=== PATIENT | female | born 1980 | race Caucasian/White ===

== ENCOUNTER → 2017-01-24 | Outpatient (CLI) | payer BC ==
--- NOTE | 2017-01-24 16:30 | Diagnostic Imaging Report ---
INDICATION: Punched wall with hand. FINDINGS: Three views show no fractures. There are no dislocations. Articulating surfaces are smooth. Joint spaces are well preserved. IMPRESSION: Normal left hand. Dictated by: Dictated on workstation # [id number]
== END ==
LOC: RAD 15:59
PROVIDERS: ATTEND Physician Assistant Medical
DX: M79.642 Pain in left hand (principal); M19.90 Unspecified osteoarthritis, unspecified site
CPT/HCPCS: 36415; 73130; 85652; 86038; 86039; 86141; 86200; 86430

== ENCOUNTER 2017-12-31 07:03 | Emergency (ER) | payer BC ==
[~2017-12-31] VITALS: Ht 157.5 cm; Wt 65.8 kg
[2017-12-31 07:41] LABS: BASOPHILS % (AUTO) 0 % (0-10); EOSINOPHILS # (AUTO) 0.1 10^3/uL (0.0-0.3); EOSINOPHILS % (AUTO) 1 % (0-10); HEMATOCRIT 37 % (35-52); HEMOGLOBIN 12.7 G/DL (11.5-16.0); LYMPHOCYTES # (AUTO) 1.2 X 10^3 (1.0-4.0); LYMPHOCYTES % (AUTO) 25 % (12-44); MEAN CORPUSCULAR HEMOGLOBIN 30 PG (25-34); MEAN CORPUSCULAR HGB CONC 34 G/DL (32-36); MEAN CORPUSCULAR VOLUME 88 FL (80-99); MEAN PLATELET VOLUME 9.2 FL (7.4-10.4); MONOCYTES # (AUTO) 0.4 X 10^3 (0.0-1.0); MONOCYTES % (AUTO) 9 % (0-12); NEUTROPHILS # (AUTO) 3.1 X 10^3 (1.8-7.8); NEUTROPHILS % (AUTO) 64 % (42-75); PLATELET COUNT 291 10^3/uL (130-400); RED BLOOD COUNT 4.22 10^6/uL (4.35-5.85); WHITE BLOOD COUNT 4.8 10^3/uL (4.3-11.0)
[2017-12-31] MEDS ORDERED: NS IV 1000 ML 1,000 ML IV SCH (07:45)
[2017-12-31] MEDS ORDERED: LINA145C (07:47)
[2017-12-31] MEDS ORDERED: VENL225T (07:47)
[2017-12-31] MEDS ORDERED: HYDR2TAB6 (07:47)
[2017-12-31] MEDS ORDERED: DICY20TA10 (07:47)
[2017-12-31] MEDS ORDERED: NORE1TAB55 (07:47)
[2017-12-31 07:56] LABS: ALANINE AMINOTRANSFERASE 33 U/L (0-55); ALBUMIN 4.2 GM/DL (3.2-4.5); ALKALINE PHOSPHATASE 74 U/L (40-136); BILIRUBIN,TOTAL 0.3 MG/DL (0.1-1.0); BUN/CREATININE RATIO 16; CALCIUM 8.9 MG/DL (8.5-10.1); CARBON DIOXIDE 25 MMOL/L (21-32); CHLORIDE 106 MMOL/L (98-107); GFR ESTIMATED > 60; GLUCOSE 85 MG/DL (70-105); POTASSIUM 4.1 MMOL/L (3.6-5.0); SODIUM 138 MMOL/L (135-145)
[2017-12-31 08:05] LABS: BILIRUBIN,URINE NEGATIVE (NEGATIVE); CLARITY,URINE CLEAR; COLOR,URINE YELLOW; GLUCOSE, URINE (UA) NEGATIVE (NEGATIVE); KETONES,URINE NEGATIVE (NEGATIVE); LEUKOCYTE ESTERASE ,URINE 1+ (NEGATIVE); NITRITE,URINE NEGATIVE (NEGATIVE); PH,URINE 6 (5-9); PROTEIN,URINE NEGATIVE (NEGATIVE); UROBILINOGEN,URINE NORMAL (NORMAL)
--- NOTE | 2017-12-31 08:17 | Diagnostic Imaging Report ---
INDICATION: Left-sided abdominal pain. COMPARISON: None Findings: Single supine radiographic view of the abdomen was obtained. There is a 4 mm extraosseous calcification projecting over the left transverse process of L2 in the expected location of the proximal ureter or UPJ. Additional 4 mm calculus is also seen projecting over the inferior pole of the left kidney. No unexpected radiopaque foreign bodies are seen. Small bowel loops are nondistended. There is no large collection of free intraperitoneal air within the abdomen. Bony structures show no acute abnormalities. IMPRESSION: 1. Probable calculus within the proximal left ureter near the UPJ. 2. Additional left-sided renal calculus. Dictated by: Dictated on workstation # [id number]
[2017-12-31 08:30] LABS: BACTERIA,URINE FEW /HPF; WBC,URINE RARE /HPF
[2017-12-31] MEDS ORDERED: KETOROLAC 30 MG/ML VIAL IVP ONE (08:30)
--- NOTE | 2017-12-31 08:38 | ED Abdominal Pain ---
General Chief Complaint: Abdominal/GI Problems Stated Complaint: ABD PAIN Nursing Triage Note: c/o left low abd pain. Onset 0430 this morning. Sepsis Screen: No Definite Risk Source of Information: Patient Exam Limitations: No Limitations History of Present Illness Date Seen by Provider: Dec 31, 2017 Time Seen by Provider: 08:32 Initial Comments The patient is a 37-year-old white female who presents to the ER with complaints of left lower quadrant abdominal pain. She reports that this awakened her at 04 30 this morning. She has a known history of kidney stones on the left but has not ever had one pass. Timing/Duration: 1-3 Hours Severity/Quality: Moderate Location: Flank, Suprapubic Activities at Onset: None Associated Symptoms: Denies Symptoms Allergies and Home Medications Allergies Coded Allergies: Sulfa (Sulfonamide Antibiotics) (Verified Allergy, Unknown, 12/31/17) clindamycin (Verified Allergy, Unknown, 12/31/17) meperidine (Verified Allergy, Unknown, 12/31/17) metoclopramide (Verified Allergy, Unknown, 12/31/17) Patient Home Medication List Home Medication List Reviewed: Yes Review of Systems Constitutional: see HPI EENTM: No Symptoms Reported Respiratory: No Symptoms Reported Cardiovascular: No Symptoms Reported Gastrointestinal: No Symptoms Reported Genitourinary: See HPI, Flank Pain Musculoskeletal: other (chronic knee pain) Skin: no symptoms reported Psychiatric/Neurological: No Symptoms Reported Endocrine: No Symptoms Reported Hematologic/Lymphatic: No Symptoms Reported Past [id number]-Wtaibc-Odgerf Hx Patient Social History Alcohol Use: Occasionally Uses Recreational Drug Use: No Smoking Status: Never a Smoker Recent Foreign Travel: No Contact w/Someone Who Travel: No Recent Infectious Disease Expo: No Surgeries History of Surgeries: Yes (right ACl-2005,2007,left knee meniscectomy, ERCP) Surgeries: Gallbladder, Orthopedic, Tonsillectomy Respiratory History of Respiratory Disorde: No Cardiovascular History of Cardiac Disorders: No Genitourinary History of Genitourinary Disor: No Gastrointestinal History of Gastrointestinal Di: Yes (gastroparesis) Gastrointestinal Disorders: Irritable Bowel Musculoskeletal History of Musculoskeletal Dis: Yes Endocrine History of Endocrine Disorders: No HEENT History of HEENT Disorders: No Cancer History of Cancer: No Psychosocial History of Psychiatric Problem: No Integumentary History of Skin or Integumenta: No Physical Exam Vital Signs VS - Last 72 Hours, by Label 12/31/17 12/31/17 07:30 08:38 Temp 97.3 97.3 Pulse 92 Resp 16 B/P (MAP) 135/107 (116) Pulse Ox 98 O2 Delivery Room Air Capillary Refill : Less Than 3 Seconds General Appearance: moderate distress HEENT: normal ENT inspection Neck: non-tender, full range of motion, supple, normal inspection Respiratory: chest non-tender, lungs clear, normal breath sounds, no respiratory distress, no accessory muscle use Cardiovascular: normal peripheral pulses, regular rate, rhythm, no edema, no gallop, no JVD, no murmur Gastrointestinal: tenderness (left flank and suprapubic) Back: CVA tenderness (L) 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, no motor/sensory deficits, alert, normal mood/affect, oriented x 3 Skin: normal color, warm/dry Progress/Results/Core Measures Results/Orders Lab Results Laboratory Tests Test 12/31/17 07:20 12/31/17 07:50 Range/Units White Blood Count 4.8 4.3-11.0 10^3/uL Red Blood Count 4.22 L 4.35-5.85 10^6/uL Hemoglobin 12.7 11.5-16.0 G/DL Hematocrit 37 35-52 % Mean Corpuscular Volume 88 80-99 FL Mean Corpuscular Hemoglobin 30 25-34 PG Mean Corpuscular Hemoglobin Concent 34 32-36 G/DL Red Cell Distribution Width 13.0 10.0-14.5 % Platelet Count 291 130-400 10^3/uL Mean Platelet Volume 9.2 7.4-10.4 FL Neutrophils (%) (Auto) 64 42-75 % Lymphocytes (%) (Auto) 25 12-44 % Monocytes (%) (Auto) 9 0-12 % Eosinophils (%) (Auto) 1 0-10 % Basophils (%) (Auto) 0 0-10 % Neutrophils # (Auto) 3.1 1.8-7.8 X 10^3 Lymphocytes # (Auto) 1.2 1.0-4.0 X 10^3 Monocytes # (Auto) 0.4 0.0-1.0 X 10^3 Eosinophils # (Auto) 0.1 0.0-0.3 10^3/uL Basophils # (Auto) 0.0 0.0-0.1 10^3/uL Sodium Level 138 135-145 MMOL/L Potassium Level 4.1 3.6-5.0 MMOL/L Chloride Level 106 98-107 MMOL/L Carbon Dioxide Level 25 21-32 MMOL/L Anion Gap 7 5-14 MMOL/L Blood Urea Nitrogen 13 7-18 MG/DL Creatinine 0.80 0.60-1.30 MG/DL Estimat Glomerular Filtration Rate > 60 BUN/Creatinine Ratio 16 Glucose Level 85 70-105 MG/DL Calcium Level 8.9 8.5-10.1 MG/DL Total Bilirubin 0.3 0.1-1.0 MG/DL Aspartate Amino Transf (AST/SGOT) 25 5-34 U/L Alanine Aminotransferase (ALT/SGPT) 33 0-55 U/L Alkaline Phosphatase 74 40-136 U/L Total Protein 8.0 6.4-8.2 GM/DL Albumin 4.2 3.2-4.5 GM/DL Urine Color YELLOW Urine Clarity CLEAR Urine pH 6 5-9 Urine Specific [place] 1.015 L 1.016-1.022 Urine Protein NEGATIVE NEGATIVE Urine Glucose (UA) NEGATIVE NEGATIVE Urine Ketones NEGATIVE NEGATIVE Urine Nitrite NEGATIVE NEGATIVE Urine Bilirubin NEGATIVE NEGATIVE Urine Urobilinogen NORMAL NORMAL MG/DL Urine Leukocyte Esterase 1+ H NEGATIVE Urine RBC (Auto) 1+ H NEGATIVE Urine RBC 2-5 H /HPF Urine WBC RARE /HPF Urine Squamous Epithelial Cells 5-10 /HPF Urine Crystals NONE /LPF Urine Bacteria FEW H /HPF Urine Casts NONE /LPF Urine Mucus NEGATIVE /LPF Urine Culture Indicated NO My Orders Orders - LOUISE MUSTAFA MD Cbc With Automated Diff (12/31/17 07:33) Comprehensive Metabolic Panel (12/31/17 07:33) Ua Culture If Indicated (12/31/17 07:33) Abdomen/Kub 1view (12/31/17 07:33) Ns Iv 1000 Ml (Sodium Chloride 0.9%) (12/31/17 07:45) Urine Bedside (12/31/17 07:56) Ketorolac Injection (Toradol Injection) (12/31/17 08:30) Ct Abd/Pelvis Wo(Kidney Stone) (12/31/17 08:30) Medications Given in ED Current Medications Medications Dose Ordered Sig/Warren Route Start Time Stop Time Status Last Admin Dose Admin Ketorolac Tromethamine 30 mg ONCE ONCE IVP 12/31/17 08:30 12/31/17 08:32 DC 12/31/17 08:38 30 MG Vital Signs/I&O Vital Sign - Last 12Hours 12/31/17 12/31/17 07:30 08:38 Temp 97.3 97.3 Pulse 92 Resp 16 B/P (MAP) 135/107 (116) Pulse Ox 98 O2 Delivery Room Air Blood Pressure Mean: 116 Point of Care Testing Urine -Bedside: Negative Departure Communication (Admissions) Progress Notes 0930 discussed case by phone with Dr. Ortiz. 0935 Dr[address] Ortiz in ER. CT scan showed stones in both kidneys as well as a 3.6 mm calcification in the left proximal ureter. It is also noted that there were multiple rounded calcifications at the level of the UVJ bilaterally. Mild hydronephrosis was noted in the proximal left ureter. Impression Impression: Primary Impression: left ureterolithiasis Disposition: HOME, SELF-CARE Condition: Stable/Unchanged Departure-Patient Inst. Decision time for Depature: 09:35 Referrals: ERMA CAUSEY (PCP) Primary Care Physician Patient Instructions: No Instuctions Given Add. Discharge Instructions: All discharge instructions reviewed with patient and/or family. Voiced understanding. Lots of liquids. 2.Flomax daily. 3.Omnicef twice daily as directed. 4.Zofran 8 mg every 4 hours as needed for nausea and vomiting. Appointment at Dr. Ortiz's office on 01/05 at 1445. He will need to get a plain film of the abdomen prior to that. Scripts Ondansetron (Zofran Odt) 8 Mg Tab.rapdis 8 MG PO every 4 hours, #20 TAB Prov: LOUISE MUSTAFA MD 12/31/17 Cefdinir (Cefdinir) 300 Mg Capsule 300 MG PO twice a day, #14 CAP Prov: LOUISE MUSTAFA MD 12/31/17 Tamsulosin HCl (Flomax) 0.4 Mg Cap 0.4 MG PO DAILY, #7 CAP Prov: LOUISE MUSTAFA MD 12/31/17 LOUISE MUSTAFA MD Dec 31, 2017 08:38
--- NOTE | 2017-12-31 09:05 | Diagnostic Imaging Report ---
PROCEDURE: CT urinary tract, rule out kidney stone. TECHNIQUE: Multiple contiguous axial images were obtained through the abdomen and pelvis without the use of intravenous contrast. INDICATION: Lower abdominal and back pain COMPARISON: None FINDINGS: The lung bases are clear. The liver appears unremarkable. The gallbladder appears absent. There is no biliary dilatation. The pancreas, spleen and adrenal glands appear unremarkable. There is a 2 mm punctate nonobstructive calculus in the inferior pole of the right kidney. The right ureter appears unremarkable. There is a 5 mm stone in the proximal left ureter just distal to the ureteropelvic junction with mild left hydronephrosis. There is an additional 4 mm calculus in the mid left kidney with couple of additional punctate stone seen in the upper pole. The distal left ureter appears unremarkable. The bladder appears unremarkable. There is a 2.3 cm left adnexal cyst or dominant follicle. The uterus and adnexa are otherwise unremarkable. There is no evidence of appendicitis. There is no free fluid, free air or adenopathy. Abdominal aorta appears normal in caliber. Osseous structures appear unremarkable. IMPRESSION: 1. There is a 5 mm stone in the proximal left ureter just distal to the ureteropelvic junction with very mild left hydronephrosis. 2. Bilateral nephrolithiasis. 3. A 2.3 cm left adnexal cyst or dominant follicle Dictated by: Dictated on workstation # [id number]
[2017-12-31] MEDS ORDERED: CEFD300C3 PO (09:54)
[2017-12-31] MEDS ORDERED: TAMS0.4C98 PO (09:54)
[2017-12-31] MEDS ORDERED: ONDA8TAB9 PO (09:54)
[2017-12-31] MEDS ORDERED: Tramadol (10:03)
[2017-12-31] MEDS ORDERED: TRAM50TA2 PO (10:03)
[2017-12-31 10:32] VITALS: BP 128/90
--- NOTE | 2017-12-31 11:28 | CONSULTATION REPORT ---
DATE OF SERVICE: 12/31/2017 ATTENDING PHYSICIAN: Jarvis Crews MD. SUMMARY: After reviewing the patient's records, x-rays, interviewing her and examining her, this is a 37-year-old white female, who came to the emergency room because of left-sided abdominal pain with some nausea. A CT scan of the abdomen and a KUB showed a 3.6 mm stone in the left proximal ureter with mild hydro and some bilateral small stones. The patient received some Toradol with a good improvement of the pain. She knew she had stones before, but never passed one, never had surgery on them. ALLERGIES: SHE IS ALLERGIC TO SULFA, CLINDAMYCIN, DEMEROL, and METOCLOPRAMIDE. PAST SURGICAL HISTORY: Tonsillectomy, cholecystectomy and ACL right side x2 and left knee meniscectomy. SOCIAL HISTORY: No smoking, no alcohol, and no drugs. She works with the [employer]. She is a community engagement specialist. She denies any other complaints. PHYSICAL EXAMINATION: VITAL SIGNS: Per chart. GENERAL: Well-nourished, well developed, in mild distress at the time of my examination. HEENT: Head is normocephalic. ENT unremarkable. NECK: Supple. No bruit. CHEST: Clear, nontender. HEART: Regular rate and rhythm, no murmur. ABDOMEN: Soft. There is a left CVA tenderness. EXTREMITIES: Lower extremity, no edema or cyanosis. NEUROLOGIC: Grossly intact. Oriented x3. LABORATORY DATA: Lab result is essentially okay except for some microscopic hematuria. ASSESSMENT: 1. Left proximal ureteral stone with mild hydro and pain. 2. Bilateral renal stones. 3. Osteoarthritis with previous orthopedic surgeries. PLAN: I discussed with her the plan completely. We will let her go home, give her some antibiotic; Flomax and Zofran. She will be seen in my office on 01/05/2018 at 2:45 with a KUB prior to that and we will manage accordingly. I told her to drink plenty of liquids, especially caffeinated one, strain and catch the stone and bring it with her on her visit to the office. Job ID: [id number] DocumentID: [id number] Dictated Date: 12/31/2017 10:54:13 License Registration Examiner Date: 12/31/2017 11:27:39 Dictated By: VERNON BRENNAN MD
[2018-01-03] MEDS ORDERED: LINA145C PO (01:50)
[2018-01-03] MEDS ORDERED: VENL225T PO (01:50)
[2018-01-03] MEDS ORDERED: TAMS0.4C2 PO (01:50)
[2018-01-03] MEDS ORDERED: DICY20TA10 PO (01:50)
[2018-01-03] MEDS ORDERED: ONDA8TAB13 PO (01:50)
[2018-01-03] MEDS ORDERED: NAPR220C11 PO (01:50)
[2018-01-03] MEDS ORDERED: donperidone PO (01:50)
[2018-01-03] MEDS ORDERED: TRAM50TA2 PO (01:50)
[2018-01-03] MEDS ORDERED: CEFD300C3 PO (01:50)
== END 2017-12-31 10:32 | disposition home or self-care (01) ==
LOC: EDUNIT# 07:03 → ER 07:04
DX: N20.1 Calculus of ureter (principal); Z87.442 Personal history of urinary calculi; Z87.19 Personal history of other diseases of the digestive system; Z90.89 Acquired absence of other organs; Z98.890 Other specified postprocedural states; Z88.2 Allergy status to sulfonamides; Z88.1 Allergy status to other antibiotic agents; Z88.5 Allergy status to narcotic agent
CPT/HCPCS: 36415; 74018; 74176; 80053; 81000; 84703; 85025; 96361; 96374

== ENCOUNTER 2018-01-07 13:51 | Inpatient (IN) | payer BC ==
[~2018-01-07] VITALS: Ht 157.5 cm; Wt 64.4 kg
[~2018-01-07 13:51] MED LIST: CEFD300C3 PO; DICY20TA10; DICY20TA10 PO; HYDR2TAB6; LINA145C; LINA145C PO; NAPR220C11 PO; NORE1TAB55; ONDA8TAB13 PO; ONDA8TAB9 PO; TAMS0.4C2 PO; TAMS0.4C98 PO; TRAM50TA2 PO; Tramadol; VENL225T PO; donperidone PO
[2018-01-07] MEDS ORDERED: NS IV 1000 ML 1,000 ML IV ONE (14:00)
[2018-01-07] MEDS ORDERED: HYDROmorphone 2 MG/ML VIAL (DILAUDID) IVP STA ×3 (14:20→16:37)
[2018-01-07 14:34] LABS: BASOPHILS % (AUTO) 0 % (0-10); EOSINOPHILS # (AUTO) 0.1 10^3/uL (0.0-0.3); EOSINOPHILS % (AUTO) 1 % (0-10); HEMATOCRIT 37 % (35-52); HEMOGLOBIN 12.5 G/DL (11.5-16.0); LYMPHOCYTES # (AUTO) 1.4 X 10^3 (1.0-4.0); LYMPHOCYTES % (AUTO) 18 % (12-44); MEAN CORPUSCULAR HEMOGLOBIN 29 PG (25-34); MEAN CORPUSCULAR HGB CONC 34 G/DL (32-36); MEAN CORPUSCULAR VOLUME 86 FL (80-99); MEAN PLATELET VOLUME 8.6 FL (7.4-10.4); MONOCYTES # (AUTO) 0.9 X 10^3 (0.0-1.0); MONOCYTES % (AUTO) 12 % (0-12); NEUTROPHILS # (AUTO) 5.5 X 10^3 (1.8-7.8); NEUTROPHILS % (AUTO) 70 % (42-75); PLATELET COUNT 400 10^3/uL (130-400); RED BLOOD COUNT 4.26 10^6/uL (4.35-5.85); RED CELL DISTRIBUTION WIDTH 12.7 % (10.0-14.5); WHITE BLOOD COUNT 7.9 10^3/uL (4.3-11.0)
--- NOTE | 2018-01-07 14:53 | ED Abdominal Pain ---
General Chief Complaint: Abdominal/GI Problems Stated Complaint: ABD PAIN Nursing Triage Note: ARRIVED VIA WC TO ROOM 07. WAS HERE ON FRIDAY ET HAD A OPEN COLON RESECTION. WAS SEEN IN NING OFFICE AND SENT OVER FOR OUTPT RADIOLOGY ET CONTINUED TO HAVE PAIN AND WAS TOLD TO COME TO ER PER SHRAVAN. Sepsis Screen: No Definite Risk Source of Information: Patient Exam Limitations: No Limitations History of Present Illness Date Seen by Provider: Jan 07, 2018 Time Seen by Provider: 14:02 Initial Comments Here with report of increasing right lower quadrant abdominal pain. Had right hemicolectomy on Friday. Did have bowel movement 2 days ago and yesterday. Had been doing better until today. Followed up with Dr. Gonzalez today and he was given get labs and x-rays. This is been redone outpatient but she had severe pain so check into the ER. Denies vomiting or fevers. Was noted to have temp of 99.4 at the surgeon's office today. Reports that she's been taking her tramadol that has been working but not today. Denies nausea. Timing/Duration: 4-6 Hours Severity/Quality: Moderate, Severe Location: RUQ, RLQ Radiation: No Radiation Activities at Onset: None Modifying Factors: Improves With Analgesics; Worsens With Movement; Improves With Resting Associated Symptoms: No Back Pain, No Chest Pain; Fever/Chills; No Nausea/ Vomiting, No Shortness of Air, No Swelling/Mass in Abdomen, No Weakness Allergies and Home Medications Allergies Coded Allergies: Sulfa (Sulfonamide Antibiotics) (Verified Allergy, Unknown, 01/02/18) clindamycin (Verified Allergy, Unknown, 12/31/17) meperidine (Verified Allergy, Unknown, 12/31/17) metoclopramide (Verified Allergy, Unknown, 12/31/17) Home Medications Cefdinir 300 Mg Capsule, 300 MG PO BID, (Reported) Dicyclomine HCl 20 Mg Tablet, 20 MG PO 3-4 daily, (Reported) 3-4 times daily prior to meals Linaclotide 145 Mcg Capsule, 145 MCG PO DAILY, (Reported) Naproxen Sodium 220 Mg Capsule, 220 MG PO DAILY, (Reported) 1-2 tabs daily Ondansetron 8 Mg Tab.rapdis, 8 MG PO Q6H PRN for NAUSEA/VOMITING-1ST LINE, ( Reported) Tamsulosin HCl 0.4 Mg Cap, 0.4 MG PO DAILY Prescribed by: LOUISE MUSTAFA on 12/31/17 0954 Tamsulosin HCl 0.4 Mg Cap.er.24h, 0.4 MG PO DAILY, (Reported) Tramadol HCl 50 Mg Tablet, 50 MG PO QID PRN for PAIN-MILD TO MODERATE Prescribed by: MAREN LOPEZ on 01/05/18 1425 Tramadol HCl 50 Mg Tablet, 50 MG PO TID PRN for pain Prescribed by: MAREN LOPEZ on 01/05/18 1520 [donperidone] , 10 MG PO TIDAC, (Reported) Patient Home Medication List Home Medication List Reviewed: Yes Review of Systems Constitutional: see HPI; No chills; fever EENTM: No Symptoms Reported Respiratory: No Symptoms Reported Cardiovascular: No Symptoms Reported Gastrointestinal: See HPI; Denies Constipated, Denies Diarrhea Genitourinary: No Symptoms Reported; Denies Discharge, Denies Pain Musculoskeletal: No back pain; muscle pain Skin: no symptoms reported Psychiatric/Neurological: No Symptoms Reported All Other Systems Reviewed Negative Unless Noted: Yes Past Gmfwxeg-Jtukep-Zpvszl Hx Past Med/Social Hx: Reviewed Nursing Past Med/Soc Hx Patient Social History Alcohol Use: Occasionally Uses Recreational Drug Use: No Smoking Status: Never a Smoker 2nd Hand Smoke Exposure: No Recent Foreign Travel: No Contact w/Someone Who Travel: No Recent Infectious Disease Expo: No Recent Hopitalizations: No Immunizations Up To Date Tetanus Booster (TDap): Unknown Seasonal Allergies Seasonal Allergies: No Past Medical History Surgeries: Yes (right ACl-2006,2007,left knee meniscectomy, ERCP) Gallbladder, Orthopedic, Tonsillectomy Respiratory: No Asthma Currently Using CPAP: No Currently Using BIPAP: No Cardiac: No Neurological: Yes Seizure Disorder Sexually Transmitted Disease: No HIV/AIDS: No Genitourinary: Yes Kidney Stones Gastrointestinal: Yes (gastroparesis) Gastroesophageal Reflux, Irritable Bowel Musculoskeletal: Yes Endocrine: No HEENT: Yes (vision loss) Cataract Cancer: No Psychosocial: Yes Anxiety Integumentary: No Blood Disorders: No Adverse Reaction/Blood Tranf: No Family Medical History Reviewed Nursing Family Hx Autoimmune disorder 19 MOTHER, Onset:30's - 40 Dementia maternal grandmother, Onset:60 years & older Diabetes mellitus maternal grandmother, Onset:Unknown Drug abuse FH: hypothyroidism 19 MOTHER, Onset:Unknown Hypertension maternal grandmother, Onset:Unknown maternal grandfather, Onset:Unknown Kidney stone 19 FATHER, Onset:Unknown Heart Disease, Other Conditions/Hx Physical Exam Vital Signs Vital Signs - First Documented 01/07/18 14:08 Temp 98.3 Pulse 116 Resp 18 B/P (MAP) 146/109 (121) Pulse Ox 98 Capillary Refill : Less Than 3 Seconds General Appearance: WD/WN, no apparent distress HEENT: PERRL/EOMI, pharynx normal Neck: full range of motion, supple Respiratory: lungs clear, normal breath sounds Cardiovascular: no murmur, tachycardia Gastrointestinal: non tender, soft Extremities: non-tender, normal inspection Back: normal inspection, no CVA tenderness, no vertebral tenderness Neurologic/Psychiatric: alert, oriented x 3 Skin: normal color, warm/dry Focused Exam Lactate Level 01/07/18 14:25: Lactic Acid Level 1.51 Lactic Acid Level Laboratory Tests Test 01/07/18 14:25 Lactic Acid Level 1.51 MMOL/L (0.50-2.00) Progress/Results/Core Measures Lab Results Laboratory Tests Test 01/07/18 12:20 01/07/18 14:25 Range/Units Urine Color YELLOW Urine Clarity SLIGHTLY CLOUDY Urine pH 6 5-9 Urine Specific [place] 1.010 L 1.016-1.022 Urine Protein NEGATIVE NEGATIVE Urine Glucose (UA) NEGATIVE NEGATIVE Urine Ketones NEGATIVE NEGATIVE Urine Nitrite NEGATIVE NEGATIVE Urine Bilirubin NEGATIVE NEGATIVE Urine Urobilinogen NORMAL NORMAL MG/DL Urine Leukocyte Esterase 2+ H NEGATIVE Urine RBC (Auto) 1+ H NEGATIVE Urine RBC 2-5 H /HPF Urine WBC 10-25 H /HPF Urine Squamous Epithelial Cells 10-25 H /HPF Urine Crystals NONE /LPF Urine Bacteria FEW H /HPF Urine Casts NONE /LPF Urine Mucus NEGATIVE /LPF Urine Yeast FEW H /HPF Urine Culture Indicated YES White Blood Count 7.9 4.3-11.0 10^3/uL Red Blood Count 4.26 L 4.35-5.85 10^6/uL Hemoglobin 12.5 11.5-16.0 G/DL Hematocrit 37 35-52 % Mean Corpuscular Volume 86 80-99 FL Mean Corpuscular Hemoglobin 29 25-34 PG Mean Corpuscular Hemoglobin Concent 34 32-36 G/DL Red Cell Distribution Width 12.7 10.0-14.5 % Platelet Count 400 130-400 10^3/uL Mean Platelet Volume 8.6 7.4-10.4 FL Neutrophils (%) (Auto) 70 42-75 % Lymphocytes (%) (Auto) 18 12-44 % Monocytes (%) (Auto) 12 0-12 % Eosinophils (%) (Auto) 1 0-10 % Basophils (%) (Auto) 0 0-10 % Neutrophils # (Auto) 5.5 1.8-7.8 X 10^3 Lymphocytes # (Auto) 1.4 1.0-4.0 X 10^3 Monocytes # (Auto) 0.9 0.0-1.0 X 10^3 Eosinophils # (Auto) 0.1 0.0-0.3 10^3/uL Basophils # (Auto) 0.0 0.0-0.1 10^3/uL Sodium Level 139 135-145 MMOL/L Potassium Level 3.6 3.6-5.0 MMOL/L Chloride Level 104 98-107 MMOL/L Carbon Dioxide Level 20 L 21-32 MMOL/L Anion Gap 15 H 5-14 MMOL/L Blood Urea Nitrogen 10 7-18 MG/DL Creatinine 0.84 0.60-1.30 MG/DL Estimat Glomerular Filtration Rate > 60 BUN/Creatinine Ratio 12 Glucose Level 82 70-105 MG/DL Lactic Acid Level 1.51 0.50-2.00 MMOL/L Calcium Level 10.1 8.5-10.1 MG/DL Total Bilirubin 0.3 0.1-1.0 MG/DL Aspartate Amino Transf (AST/SGOT) 30 5-34 U/L Alanine Aminotransferase (ALT/SGPT) 27 0-55 U/L Alkaline Phosphatase 97 40-136 U/L Total Protein 8.6 H 6.4-8.2 GM/DL Albumin 4.1 3.2-4.5 GM/DL My Orders Orders - SANTOS VELEZ MD Cbc With Automated Diff (01/07/18 14:00) Comprehensive Metabolic Panel (01/07/18 14:00) Lactic Acid Analyzer (01/07/18 14:00) Ua Culture If Indicated (01/07/18 14:00) Blood Culture (01/07/18 14:00) Saline Lock/Iv-Start (01/07/18 14:00) Ns Iv 1000 Ml (Sodium Chloride 0.9%) (01/07/18 14:00) Hydromorphone Injection (Dilaudid Inject (01/07/18 14:20) Hydromorphone Injection (Dilaudid Inject (01/07/18 14:56) Urine Culture (01/07/18 12:20) Ct Abdomen/Pelvis W (01/07/18 15:44) Hydromorphone Injection (Dilaudid Inject (01/07/18 16:37) Ceftriaxone Injection (Rocephin Injectio (01/07/18 16:45) Medications Given in ED Current Medications Medications Dose Ordered Sig/Warren Route Start Time Stop Time Status Last Admin Dose Admin Ceftriaxone Sodium 1000 mg/ Sodium Chloride 100 ml @ 200 mls/hr ONCE ONCE IV 01/07/18 16:45 01/07/18 17:14 DC 01/07/18 17:00 200 MLS/HR Iohexol 100 ml ONCE ONCE IV 01/07/18 16:15 01/07/18 16:18 DC 01/07/18 16:19 100 ML Sodium Chloride 80 ml ONCE ONCE IV 01/07/18 16:15 01/07/18 16:18 DC 01/07/18 16:19 80 ML Sodium Chloride 1,000 ml @ 0 mls/hr Q0M ONCE IV 01/07/18 14:00 01/07/18 14:03 DC 01/07/18 14:31 1,000 MLS/HR Vital Signs/I&O 01/07/18 14:08 Temp 98.3 Pulse 116 Resp 18 B/P (MAP) 146/109 (121) Pulse Ox 98 Blood Pressure Mean: 121 Progress Note : Progress Note Seen and evaluated. IV, labs, UA, normal saline 1 L bolus and Dilaudid 1 mg IV. We will evaluate labs and determine need for other imaging. 1455: Patient still and unrelenting pain. Dilaudid 1 mg IV repeated.. Monitor patient. CT abdomen and pelvis ordered. 1630: Patient has persistent pain. CT scan evaluated and concerning findings for ileus as well as air-fluid levels. This was discussed with Dr. Gonzalez. Patient still with significant pain. Dilaudid 1 mg IV ordered. She has better now although then when she came in earlier. To be admitted. Admit, inpatient status. We will also treat for possible urinary tract infection. Rocephin 1 g IV ordered. We will continue this during hospitalization until cultures results. Findings concerns discussed with patient and family who agree with plan. Diagonstic Imaging: CT Plain Films/CT/US/NM/MRI: abdomen, pelvis Comments %(RAD)RES..mtdd.print.filter("cj")VIA [facility] %(RAD)RES..mtdd.print.filter("cj")[place], [place] NAME: EULALIO NAILS [facility] REC#: [id number] PT STATUS: REG ER : 1980 PHYSICIAN: SANTOS VELEZ MD ADMIT DATE: 01/07/18/ER Draft Date of Exam:01/07/18 CT ABDOMEN/PELVIS W PROCEDURE: CT abdomen and pelvis with contrast. TECHNIQUE: Multiple contiguous axial images were obtained through the abdomen and pelvis after administration of intravenous contrast. INDICATION: Right lower quadrant pain. Colon resection 6 days ago. COMPARISON: 01/02/2018 FINDINGS: Lower chest: There are a few scattered foci of linear atelectasis in lung bases. No pericardial or pleural effusion. Peritoneum: Trace free fluid in the right paracolic gutter is likely postoperative in nature. No loculated fluid collections to indicate drainable abscess. Liver and biliary system: Liver is normal. Gallbladder is not visualized and may be surgically absent or decompressed. Spleen and Pancreas: Spleen is normal. Pancreas enhances normally without mass lesion. Adrenals: Normal. tract: Stable 5 mm nonobstructing stone in the mid left kidney. Kidneys enhance normally without obstruction. Uterus is normal in appearance. Urinary bladder is well distended without wall thickening. GI tract: Stomach is partially distended with fluid. A few of the distal small bowel loops are fluid filled but nondilated. The entire colon is fluid-filled without wall thickening. Status post partial right-sided colectomy. Appendix is likely surgically absent. Vasculature and Lymph nodes: Normal caliber aorta. No abdominal or pelvic lymphadenopathy. Musculoskeletal: No concerning osseous lesion. IMPRESSION: 1. Recent surgical changes of partial right colectomy. No loculated fluid collection to indicate abscess. No free intraperitoneal air or fluid that would suggest anastomotic leak. 2. Fluid-filled and nondilated loops of small bowel and colon may be due to postoperative ileus. Dictated on workstation # [id number] Dict: 01/07/18 1644 Trans: 01/07/18 1655 [id number] Interpreted by: REMINGTON MCGOVERN MD Electronically signed by: Reviewed: Reviewed by Me Departure Communication (Admissions) Time/Spoke to Admitting Phy: 16:30 Impression Primary Impression: Postoperative pain Additional Impressions: Ileus following gastrointestinal surgery Urinary tract infection Qualified Codes: N30.00 - Acute cystitis without hematuria Disposition: ADMITTED INPATIENT Condition: Stable Admissions Decision to Admit Reason: Admit from ER (General) Decision to Admit/Date: Jan 07, 2018 Time/Decision to Admit Time: 16:30 Departure-Patient Inst. Referrals: ERMA CAUSEY (PCP/Family) Primary Care Physician SANTOS VELEZ MD Jan 07, 2018 14:53
[2018-01-07 14:57] LABS: ALANINE AMINOTRANSFERASE 27 U/L (0-55); ALBUMIN 4.1 GM/DL (3.2-4.5); ALKALINE PHOSPHATASE 97 U/L (40-136); BILIRUBIN,TOTAL 0.3 MG/DL (0.1-1.0); BUN/CREATININE RATIO 12; CALCIUM 10.1 MG/DL (8.5-10.1); CARBON DIOXIDE 20 MMOL/L (21-32); CHLORIDE 104 MMOL/L (98-107); CREATININE SERUM 0.84 MG/DL (0.60-1.30); GFR ESTIMATED > 60; GLUCOSE 82 MG/DL (70-105); POTASSIUM 3.6 MMOL/L (3.6-5.0); SODIUM 139 MMOL/L (135-145); TOTAL PROTEIN 8.6 GM/DL (6.4-8.2)
[2018-01-07 15:31] LABS: BILIRUBIN,URINE NEGATIVE (NEGATIVE); CLARITY,URINE SLIGHTLY CLOUDY; COLOR,URINE YELLOW; GLUCOSE, URINE (UA) NEGATIVE (NEGATIVE); KETONES,URINE NEGATIVE (NEGATIVE); LEUKOCYTE ESTERASE ,URINE 2+ (NEGATIVE); NITRITE,URINE NEGATIVE (NEGATIVE); PH,URINE 6 (5-9); PROTEIN,URINE NEGATIVE (NEGATIVE); UROBILINOGEN,URINE NORMAL (NORMAL)
[2018-01-07 15:41] LABS: BACTERIA,URINE FEW /HPF; YEAST,URINE FEW /HPF
[2018-01-07] MEDS ORDERED: IOHEXOL 350 MG/ML 100 ML (OMNIPAQUE 350) VIAL IV ONE (16:15)
[2018-01-07] MEDS ORDERED: NS 250 ML (IVPB) BAG IV ONE (16:15)
[2018-01-07] MEDS ORDERED: cefTRIAXone INJECTION 1,000 MG in NS (IVPB) 100 ML IV ONE (16:45)
--- NOTE | 2018-01-07 16:56 | Diagnostic Imaging Report ---
PROCEDURE: CT abdomen and pelvis with contrast. TECHNIQUE: Multiple contiguous axial images were obtained through the abdomen and pelvis after administration of intravenous contrast. INDICATION: Right lower quadrant pain. Colon resection 6 days ago. COMPARISON: 01/02/2018 FINDINGS: Lower chest: There are a few scattered foci of linear atelectasis in lung bases. No pericardial or pleural effusion. Peritoneum: Trace free fluid in the right paracolic gutter is likely postoperative in nature. No loculated fluid collections to indicate drainable abscess. Liver and biliary system: Liver is normal. Gallbladder is not visualized and may be surgically absent or decompressed. Spleen and Pancreas: Spleen is normal. Pancreas enhances normally without mass lesion. Adrenals: Normal. tract: Stable 5 mm nonobstructing stone in the mid left kidney. Kidneys enhance normally without obstruction. Uterus is normal in appearance. Urinary bladder is well distended without wall thickening. GI tract: Stomach is partially distended with fluid. A few of the distal small bowel loops are fluid filled but nondilated. The entire colon is fluid-filled without wall thickening. Status post partial right-sided colectomy. Appendix is likely surgically absent. Vasculature and Lymph nodes: Normal caliber aorta. No abdominal or pelvic lymphadenopathy. Musculoskeletal: No concerning osseous lesion. IMPRESSION: 1. Recent surgical changes of partial right colectomy. No loculated fluid collection to indicate abscess. No free intraperitoneal air or fluid that would suggest anastomotic leak. 2. Fluid-filled and nondilated loops of small bowel and colon may be due to postoperative ileus. Dictated by: Dictated on workstation # [id number]
[2018-01-07 17:45] VITALS: BP 130/82
[2018-01-07] MEDS ORDERED: NS IV 1000 ML 1,000 ML ONE (17:52)
[2018-01-07] MEDS ORDERED: ONDANSETRON 4 MG/2 ML (SDV) Z0FRAN IV PRN (18:15)
[2018-01-07] MEDS ORDERED: CATHETER FLUSH 10 ML SYR IV PRN (18:15)
[2018-01-07] MEDS: HYDROmorphone 2 MG/ML VIAL (DILAUDID) IV PRN ×3 (18:18→23:47)
[2018-01-07] MEDS: NS IV 1000 ML 1,000 ML IV SCH (18:19)
[2018-01-07 19:20] VITALS: BP 130/87
[2018-01-08 00:41] VITALS: BP 126/86
[2018-01-08] MEDS: NS IV 1000 ML 1,000 ML IV SCH ×4 (01:44→16:07)
[2018-01-08 03:57] VITALS: BP 123/79
[2018-01-08] MEDS: HYDROmorphone 2 MG/ML VIAL (DILAUDID) IV PRN ×2 (03:57→08:45)
[2018-01-08 06:11] LABS: BASOPHILS % (AUTO) 0 % (0-10); EOSINOPHILS # (AUTO) 0.1 10^3/uL (0.0-0.3); EOSINOPHILS % (AUTO) 2 % (0-10); HEMATOCRIT 29 % (35-52); HEMOGLOBIN 9.7 G/DL (11.5-16.0); LYMPHOCYTES # (AUTO) 1.1 X 10^3 (1.0-4.0); LYMPHOCYTES % (AUTO) 18 % (12-44); MEAN CORPUSCULAR HEMOGLOBIN 29 PG (25-34); MEAN CORPUSCULAR HGB CONC 33 G/DL (32-36); MEAN CORPUSCULAR VOLUME 88 FL (80-99); MEAN PLATELET VOLUME 8.3 FL (7.4-10.4); MONOCYTES # (AUTO) 0.8 X 10^3 (0.0-1.0); MONOCYTES % (AUTO) 13 % (0-12); NEUTROPHILS % (AUTO) 68 % (42-75); PLATELET COUNT 312 10^3/uL (130-400); RED BLOOD COUNT 3.31 10^6/uL (4.35-5.85); RED CELL DISTRIBUTION WIDTH 12.9 % (10.0-14.5); WHITE BLOOD COUNT 5.9 10^3/uL (4.3-11.0)
[2018-01-08 06:31] LABS: ALANINE AMINOTRANSFERASE 25 U/L (0-55); ALBUMIN 3.2 GM/DL (3.2-4.5); ALKALINE PHOSPHATASE 79 U/L (40-136); BILIRUBIN,TOTAL 0.3 MG/DL (0.1-1.0); BUN/CREATININE RATIO 8; CALCIUM 8.6 MG/DL (8.5-10.1); CARBON DIOXIDE 20 MMOL/L (21-32); CHLORIDE 110 MMOL/L (98-107); CREATININE SERUM 0.71 MG/DL (0.60-1.30); GFR ESTIMATED > 60; GLUCOSE 88 MG/DL (70-105); POTASSIUM 3.6 MMOL/L (3.6-5.0); SODIUM 139 MMOL/L (135-145); TOTAL PROTEIN 6.6 GM/DL (6.4-8.2)
[2018-01-08 08:00] VITALS: BP 126/85
[2018-01-08] MEDS: cefTRIAXone 1 GM/NS 100 ML IV SCH ×2 (08:45)
[2018-01-08] MEDS ORDERED: TRAM50TA2 PO (09:50)
[2018-01-08] MEDS ORDERED: NORE1TAB55 PO (09:54)
[2018-01-08] MEDS ORDERED: PEDI18TA2 PO (09:54)
[2018-01-08] MEDS ORDERED: DOMPERIDONE 10MG PO (09:54)
--- NOTE | 2018-01-08 10:20 | Physical Therapy Progress Note ---
Therapy Progress Note Patient is currently ambulating in hallway independently with family. No skilled PT indicated at this time. PT did discuss with patient and family POC and they agree. REGIS ARREOLA PT Jan 08, 2018 10:20
[2018-01-08] MEDS: morphine INJ 4 MG/ML 1 ML (VIAL/SYRINGE) IVP PRN ×4 (11:27→19:00)
[2018-01-08 12:00] VITALS: BP 133/88
--- NOTE | 2018-01-08 12:30 | History & Physical-Surgical ---
History of Present Illness History of Present Illness Reason for visit/HPI chief complaint right lower quadrant abdominal pain. Patient is 37-year-old female who had recent right colectomy for cecal volvulus. She was seen in the office yesterday with right lower quadrant abdominal pain which was worsening and went to emergency department. Patient is having some difficulty with urination as well. Patient had a CT scan performed which was consistent with ileus. urine with urinary tract infection cultures pending. patient states that when she is receiving allotted she's having increased pain. She requests that a different pain medication be provided. She feels that she's getting up and walking a little bit easier today. She did have a small liquid stool yesterday. She denies any nausea vomiting fever sweats chills shortness of breath or chest pain. Date of Admission Jan 07, 2018 at 17:00 Date Seen by Provider: Jan 08, 2018 Time Seen by Provider: 12:25 I consulted on this patient on 01/08/18 12:25 Attending Physician Montserrat Gonzalez DO Admitting Physician Paola Burns Consult Allergies and Home Medications Allergies Coded Allergies: Sulfa (Sulfonamide Antibiotics) (Verified Allergy, Unknown, 01/02/18) clindamycin (Verified Allergy, Unknown, 12/31/17) meperidine (Verified Allergy, Unknown, 12/31/17) metoclopramide (Verified Allergy, Unknown, 12/31/17) Home Medications Dicyclomine HCl 20 Mg Tablet, 20 MG PO TIDAC, (Reported) Linaclotide 145 Mcg Capsule, 145 MCG PO DAILY, (Reported) Naproxen Sodium 220 Mg Capsule, 220-440 MG PO Q8H PRN for PAIN-MILD, (Reported) TAKES 1 TO 2 (220MG) CAPSULES Norethindrone-Ethinyl Estrad 1 Each Tablet, 1 TAB PO DAILY, (Reported) Pedi Mv No.79/Ferrous Fumarate 18 Mg Tab.chew, 18 MG PO DAILY, (Reported) Tramadol HCl 50 Mg Tablet, 50 MG PO Q6H PRN for PAIN-MODERATE, (Reported) Venlafaxine HCl 225 Mg Tab.er.24, 225 MG PO DAILY, (Reported) [Domperidone 10MG] , 10 MG PO TIDAC, (Reported) Patient Home Medication List Home Medication List Reviewed: Yes Past Foukbki-Gpgtsp-Nantvv Hx Patient Social History Alcohol Use: Occasionally Uses Recreational Drug Use: No Smoking Status: Never a Smoker 2nd Hand Smoke Exposure: No Recent Foreign Travel: No Contact w/Someone Who Travel: No Recent Infectious Disease Expo: No Recent Hopitalizations: No Physical Abuse Screen: No Sexual Abuse: No Immunizations Up To Date Tetanus Booster (TDap): Unknown Seasonal Allergies Seasonal Allergies: No Surgeries History of Surgeries: Yes (right ACl-2005,2007,left knee meniscectomy, ERCP, Right colon resection) Surgeries: Gallbladder, Orthopedic, Tonsillectomy Respiratory History of Respiratory Disorde: No Respiratory Disorders: Asthma Cardiovascular History of Cardiac Disorders: No Neurological History of Neurological Disord: Yes (SINCE 2 MONTS OLD. LAST SEIZURE JANUARY 2016) Neurological Disorders: Seizure Disorder Reproductive System Sexually Transmitted Disease: No HIV/AIDS: No Genitourinary History of Genitourinary Disor: Yes Genitourinary Disorders: Kidney Stones Gastrointestinal History of Gastrointestinal Di: Yes (gastroparesis) Gastrointestinal Disorders: Gastroesophageal Reflux, Irritable Bowel Musculoskeletal History of Musculoskeletal Dis: Yes Endocrine History of Endocrine Disorders: No HEENT History of HEENT Disorders: Yes HEENT Disorders: Cataract Cancer History of Cancer: No Psychosocial History of Psychiatric Problem: Yes Behavioral Health Disorders: Anxiety Integumentary History of Skin or Integumenta: No Blood Transfusions History of Blood Disorders: No Adverse Reaction to a Blood Tr: No Family Medical History Significant Family History: Heart Disease, Other Conditions/Hx Family Medial History: Autoimmune disorder 19 MOTHER, Onset:30's - 40 Dementia maternal grandmother, Onset:60 years & older Diabetes mellitus maternal grandmother, Onset:Unknown Drug abuse FH: hypothyroidism 19 MOTHER, Onset:Unknown Hypertension maternal grandmother, Onset:Unknown maternal grandfather, Onset:Unknown Kidney stone 19 FATHER, Onset:Unknown Constitutional: no symptoms reported EENTM: no symptoms reported Respiratory: no symptoms reported Cardiovascular: no symptoms reported Gastrointestinal: RLQ, abdominal pain (RLQ) Genitourinary: see HPI Musculoskeletal: no symptoms reported Skin: no symptoms reported Psychiatric/Neurological: No Symptoms Reported Physical Exam Vital Signs Vital Signs - First Documented 01/07/18 01/07/18 14:08 17:33 Temp 98.3 Pulse 116 Resp 18 B/P (MAP) 146/109 (121) Pulse Ox 98 O2 Delivery Room Air Capillary Refill : Less Than 3 Seconds General Appearance: No Apparent Distress HEENT: PERRL/EOMI Neck: Non Tender Respiratory: No Accessory Muscle Use, No Respiratory Distress Cardiovascular: Regular Rate, Rhythm Gastrointestinal: Soft, Tenderness (right lower quadrant) Extremity: Non Tender Neurologic/Psychiatric: Alert, Oriented x3, No Motor/Sensory Deficits, Normal Mood/Affect, legal intern II-XII Norm as Tested Data Review Labs Laboratory Tests 01/07/18 14:25: White Blood Count 7.9, Red Blood Count 4.26L, Hemoglobin 12.5, Hematocrit 37, Mean Corpuscular Volume 86, Mean Corpuscular Hemoglobin 29, Mean Corpuscular Hemoglobin Concent 34, Red Cell Distribution Width 12.7, Platelet Count 400, Mean Platelet Volume 8.6, Neutrophils (%) (Auto) 70, Lymphocytes (%) (Auto) 18, Monocytes (%) (Auto) 12, Eosinophils (%) (Auto) 1, Basophils (%) (Auto) 0, Neutrophils # (Auto) 5.5, Lymphocytes # (Auto) 1.4, Monocytes # (Auto) 0.9, Eosinophils # (Auto) 0.1, Basophils # (Auto) 0.0, Sodium Level 139, Potassium Level 3.6, Chloride Level 104, Carbon Dioxide Level 20L, Anion Gap 15H, Blood Urea Nitrogen 10, Creatinine 0.84, Estimat Glomerular Filtration Rate > 60, BUN/ Creatinine Ratio 12, Glucose Level 82, Lactic Acid Level 1.51, Calcium Level 10.1, Total Bilirubin 0.3, Aspartate Amino Transf (AST/SGOT) 30, Alanine Aminotransferase (ALT/SGPT) 27, Alkaline Phosphatase 97, Total Protein 8.6H, Albumin 4.1 01/08/18 06:00: White Blood Count 5.9, Red Blood Count 3.31L, Hemoglobin 9.7#L, Hematocrit 29L, Mean Corpuscular Volume 88, Mean Corpuscular Hemoglobin 29, Mean Corpuscular Hemoglobin Concent 33, Red Cell Distribution Width 12.9, Platelet Count 312, Mean Platelet Volume 8.3, Neutrophils (%) (Auto) 68, Lymphocytes (%) (Auto) 18, Monocytes (%) (Auto) 13H, Eosinophils (%) (Auto) 2, Basophils (%) (Auto) 0, Neutrophils # (Auto) 4.0, Lymphocytes # (Auto) 1.1, Monocytes # (Auto) 0.8, Eosinophils # (Auto) 0.1, Basophils # (Auto) 0.0, Sodium Level 139, Potassium Level 3.6, Chloride Level 110H, Carbon Dioxide Level 20L, Anion Gap 9, Blood Urea Nitrogen 6L, Creatinine 0.71, Estimat Glomerular Filtration Rate > 60, BUN/ Creatinine Ratio 8, Glucose Level 88, Calcium Level 8.6, Total Bilirubin 0.3, Aspartate Amino Transf (AST/SGOT) 30, Alanine Aminotransferase (ALT/SGPT) 25, Alkaline Phosphatase 79, Total Protein 6.6, Albumin 3.2 Microbiology 01/07/18 Urine Culture - Preliminary, Resulted Assessment/Plan Assessment/Plan Admission Diagonsis Status post right colon resection Ileus Right lower quadrant abdominal pain UTI History of gastroparesis Admission Status: Inpatient Order (span 2 midnights) Reason for Inpatient Admission: patient needs adequate pain control and return of bowel function, IV fluids, antibiotics Assessment/Plan Status post right colon resection Ileus Right lower quadrant abdominal pain UTI History of gastroparesis patient on IV Rocephin for urinary tract infection and await cultures Pain control patient having more pain right after getting Dilaudid switched to morphine 2-4 mg IV every 2 hours increase activity patient has physical therapy order SCDs for DVT prophylaxis Repeat labs in the morning Clear liquids Clinical Quality Measures DVT/VTE Risk/Contraindication: Risk Factor Score Per Nursin RFS Level Per Nursing on Admit: 2=Moderate MONTSERRAT GONZALEZ DO Jan 08, 2018 12:30
[2018-01-08 15:51] VITALS: BP 128/91
[2018-01-08 19:43] VITALS: BP 131/94
[2018-01-09] VITALS: BP 136/85
[2018-01-09] MEDS: NS IV 1000 ML 1,000 ML IV SCH ×2 (00:14→07:39)
[2018-01-09] MEDS: morphine INJ 4 MG/ML 1 ML (VIAL/SYRINGE) IVP PRN ×3 (00:14→07:39)
[2018-01-09 04:00] VITALS: BP 130/87
[2018-01-09 06:53] LABS: HEMOGLOBIN 9.4 G/DL (11.5-16.0); MEAN PLATELET VOLUME 8.5 FL (7.4-10.4); RED BLOOD COUNT 3.26 10^6/uL (4.35-5.85); RED CELL DISTRIBUTION WIDTH 12.7 % (10.0-14.5)
[2018-01-09 07:21] LABS: BUN/CREATININE RATIO 9; CALCIUM 8.7 MG/DL (8.5-10.1); CARBON DIOXIDE 22 MMOL/L (21-32); CHLORIDE 109 MMOL/L (98-107); CREATININE SERUM 0.66 MG/DL (0.60-1.30); GFR ESTIMATED > 60; GLUCOSE 82 MG/DL (70-105); POTASSIUM 3.3 MMOL/L (3.6-5.0); SODIUM 140 MMOL/L (135-145)
[2018-01-09 08:00] VITALS: BP 124/82
[2018-01-09] MEDS: cefTRIAXone 1 GM/NS 100 ML IV SCH ×2 (08:57)
[2018-01-09] MEDS: POTASSIUM CL 10MEQ/50ML IVPB 50 ML IV SCH ×3 (10:43→12:35)
[2018-01-09] MEDS: HYDROcodone/APAP 5 MG/325 MG (LORTAB) TAB PO PRN ×2 (10:46→15:20)
[2018-01-09 12:00] VITALS: BP 132/86
[2018-01-09] MEDS ORDERED: ACHD5005 PO (13:40)
[2018-01-09] MEDS ORDERED: FLUC100T6 PO (13:40)
[2018-01-09] MEDS ORDERED: AMOX500C2 PO (13:40)
--- NOTE | 2018-01-09 13:42 | Discharge Inst-Simple/Standard ---
Discharge Inst-Standard Discharge Medications New, Converted or Re-Newed RX: Transmitted to Pharmacy Patient Instructions/Follow Up Plan of Care/Instructions/FU: Follow up with Dr. Pepper at scheduled appointment. Any issues before that be seen at that time. Activity as Tolerated: No Discharge Diet: Soft Diet Other Inst to Patient Instructions: No lifting greater than 10 pounds. No strenuous activity. May shower in 24 hours, no tub bath or soaking. Use incentive spirometer at home as directed. No Smoking Skin/Wound Care: May remove bandages. Keep incision clean and dry. Symptoms to Report: Appetite Changes, Extremity Discoloration, Numbness/Tingling, Swelling Increased , Bleeding Excessive, Eyesight Changes, Pain Increased, Urine Color Change, Constipation(Persistent), Fever over 101 degree F, Pain/Pressure in chest, Urinating Difficulty, Cough Up/Vomit Blood, Heart Beat Irreg/Pounding, Pain/ Pressure in jaw, Vaginal Bleeding Increase, Cramps in feet or legs, Lightheadedness, Pain/Pressure in shoulder, Diarrhea(Persistent), Memory Changes Suddenly, Questions/Concerns, Weight gain consecutive days, Dizziness/ Fainting, Nausea/Vomiting, Shortness of Breath, Weight gain over 2 pounds If questions or concerns contact your physician Or seek help at emergency department. MONTSERRAT CHENEY DO Jan 09, 2018 13:42
--- NOTE | 2018-01-09 13:46 | Progress Note ---
Subjective Date Seen by Provider: Jan 09, 2018 Time Seen by Provider: 09:10 Subjective/Events-last exam feeling better today. Wanting to eat. Had large bm yesterday and passing flatus. Afebrile denies n/v fever sweats chills shortness of breath or chest pain. Urine culture enterococcus faecalis and monica Focused Exam Lactate Level 01/07/18 14:25: Lactic Acid Level 1.51 Objective Exam Vital Signs Date Time Temp Pulse Resp B/P (MAP) Pulse Ox O2 Delivery O2 Flow Rate FiO2 01/09/18 12:00 98.9 99 18 132/86 (101) 97 Room Air 01/09/18 08:00 98.2 95 18 124/82 (96) 96 Room Air 01/09/18 04:00 98.0 78 18 130/87 (101) 96 Room Air 01/09/18 00:00 99.0 105 19 136/85 (102) 95 Room Air 01/08/18 20:00 Room Air 01/08/18 19:43 99.3 103 18 131/94 (106) 97 Room Air 01/08/18 15:51 98.4 104 16 128/91 (103) 97 Room Air I & O 01/09/18 07:00 Intake Total 1800 ml Output Total 3000 ml Balance -1200 ml Capillary Refill : Less Than 3 Seconds General Appearance: No Apparent Distress HEENT: PERRL/EOMI Neck: Non Tender Respiratory: No Accessory Muscle Use, No Respiratory Distress Cardiovascular: Regular Rate, Rhythm Gastrointestinal: soft, tenderness (less tender than yesterday. incision is clean dry and intact no signs of infection) Extremity: Non Tender Neurologic/Psychiatric: Alert, Oriented x3, No Motor/Sensory Deficits, Normal Mood/Affect, nurse clinical II-XII Norm as Tested Skin: Normal Color, Warm/Dry Lymphatic: No Adenopathy Results Lab Laboratory Tests 01/09/18 06:15: White Blood Count 5.0, Red Blood Count 3.26L, Hemoglobin 9.4L, Hematocrit 29L, Mean Corpuscular Volume 88, Mean Corpuscular Hemoglobin 29, Mean Corpuscular Hemoglobin Concent 33, Red Cell Distribution Width 12.7, Platelet Count 348, Mean Platelet Volume 8.5, Sodium Level 140, Potassium Level 3.3L, Chloride Level 109H, Carbon Dioxide Level 22, Anion Gap 9, Blood Urea Nitrogen 6L, Creatinine 0.66, Estimat Glomerular Filtration Rate > 60, BUN/Creatinine Ratio 9 , Glucose Level 82, Calcium Level 8.7 Microbiology 01/07/18 Blood Culture - Preliminary, Resulted No growth 01/07/18 Urine Culture - Final, Complete Enterococcus faecalis Presumptive Monica Albicans Assessment/Plan Assessment/Plan Assessment/Plan Status post right colon resection postoperative Ileus Right lower quadrant abdominal pain UTI History of gastroparesis hypokalemia- replace tolerating liquids advance to soft add vicodin for oral pain control if continues to improve home later today or tomorrow Clinical Quality Measures DVT/VTE Risk/Contraindication: Risk Factor Score Per Nursin RFS Level Per Nursing on Admit: 2=Moderate MONTSERRAT CHENEY DO Jan 09, 2018 13:46
[2018-01-09 15:39] VITALS: BP 132/86
--- NOTE | 2018-01-13 12:16 | Physician Query-Final Dx ---
YUNG OTT 01/13/18 1216: Final Diagnosis Give Final Diagnosis Please give Final Diagnosis MONTSERRAT CHENEY DO 01/26/182050: Final Diagnosis Give Final Diagnosis Status post right colon resection postoperative Ileus Right lower quadrant abdominal pain UTI History of gastroparesis YUNG OTT Jan 13, 2018 12:16 MONTSERRAT CHENEY DO Jan 26, 2018 20:51
== END 2018-01-09 15:40 | disposition home or self-care (01) | DRG 394 ==
LOC: EDUNIT# 13:51 → ER 13:52 → 4TH 17:00
PROVIDERS: ADMIT Surgery; ATTEND Surgery
DX: K91.89 Other postprocedural complications and disorders of digestive system (principal); K56.7 Ileus, unspecified; B37.49 Other urogenital candidiasis; B95.2 Enterococcus as the cause of diseases classified elsewhere; E87.6 Hypokalemia; J45.909 Unspecified asthma, uncomplicated; G40.909 Epilepsy, unspecified, not intractable, without status epilepticus; K21.9 Gastro-esophageal reflux disease without esophagitis
CPT/HCPCS: 36415; 74177; 80048; 80053; 81000; 83605; 85025; 85027; 87040; 87077; 87088; 87186; 94760; 96361; 96365; 96375; 96376

== ENCOUNTER → 2018-01-15 | Outpatient (CLI) | payer BC ==
[~2018-01-15] MED LIST changes: +ACHD5005 PO; +AMOX500C2 PO; +DOMPERIDONE 10MG PO; +FLUC100T6 PO; +NORE1TAB55 PO; +PEDI18TA2 PO
--- NOTE | 2018-01-15 15:31 | Diagnostic Imaging Report ---
INDICATION: Colon resection, renal stones. FINDINGS: Stone disease projecting over the mid to lower third of the left renal cortex in aggregate is about 3 mm unchanged. A previous stone had projected over the distal tip of the left second lumbar transverse process, that calculus cannot be identified at that level. A few pelvic phleboliths showed no change in distribution. No adverse development. IMPRESSION: Intrarenal stone unchanged. The stone along the course of the proximal left ureter present on prior radiographically cannot be identified today. Dictated by: Dictated on workstation # [id number]
== END ==
LOC: RAD 14:13
PROVIDERS: ATTEND Internal Medicine
DX: N20.0 Calculus of kidney (principal); Z90.49 Acquired absence of other specified parts of digestive tract
CPT/HCPCS: 74018

== ENCOUNTER 2018-01-20 11:29 | Outpatient (RCR) | payer BC | END 2018-04-20 | disposition home or self-care (01) | LOC: LAB 11:29 | PROVIDERS: ATTEND Urology | DX: N20.0 Calculus of kidney (principal) | CPT/HCPCS: 88300 ==

== ENCOUNTER → 2018-01-28 | Outpatient (CLI) | payer BC ==
[2018-01-28 13:41] LABS: BASOPHILS % (AUTO) 0 % (0-10); EOSINOPHILS % (AUTO) 1 % (0-10); HEMATOCRIT 33 % (35-52); HEMOGLOBIN 11.2 G/DL (11.5-16.0); LYMPHOCYTES # (AUTO) 1.7 X 10^3 (1.0-4.0); LYMPHOCYTES % (AUTO) 30 % (12-44); MEAN CORPUSCULAR HEMOGLOBIN 29 PG (25-34); MEAN CORPUSCULAR HGB CONC 34 G/DL (32-36); MEAN CORPUSCULAR VOLUME 86 FL (80-99); MEAN PLATELET VOLUME 9.1 FL (7.4-10.4); MONOCYTES # (AUTO) 0.5 X 10^3 (0.0-1.0); MONOCYTES % (AUTO) 9 % (0-12); NEUTROPHILS # (AUTO) 3.5 X 10^3 (1.8-7.8); NEUTROPHILS % (AUTO) 60 % (42-75); PLATELET COUNT 298 10^3/uL (130-400); RED BLOOD COUNT 3.81 10^6/uL (4.35-5.85); RED CELL DISTRIBUTION WIDTH 13.4 % (10.0-14.5); WHITE BLOOD COUNT 5.8 10^3/uL (4.3-11.0)
== END ==
LOC: LAB 13:34
PROVIDERS: ATTEND Physician Assistant Medical
DX: K92.1 Melena (principal); Z90.49 Acquired absence of other specified parts of digestive tract
CPT/HCPCS: 36415; 85025

== ENCOUNTER → 2018-03-10 | Outpatient (CLI) | payer BC | LOC: LAB 13:34 | PROVIDERS: ATTEND Internal Medicine Gastroenterology | DX: K58.0 Irritable bowel syndrome with diarrhea (principal) | CPT/HCPCS: 36415 ==

== ENCOUNTER → 2018-05-07 | Outpatient (CLI) | payer BC ==
--- NOTE | 2018-05-07 15:09 | Diagnostic Imaging Report ---
INDICATION: Constipation. Status post recent colectomy. COMPARISON: 01/15/2018. FINDINGS: Two supine radiographic views of the abdomen were obtained. Small bowel loops are nondistended. There is no large collection of free intraperitoneal air. No unexpected extraosseous calcifications or radiopaque foreign bodies are seen. Included portions of the lung bases are clear. Bony structures show no gross acute abnormalities. IMPRESSION: 1. Nonobstructed small bowel gas pattern. Dictated by: Dictated on workstation # [id number]
== END ==
LOC: RAD 13:49
PROVIDERS: ATTEND Student in an Organized Health Care Education/Training Program
DX: K59.00 Constipation, unspecified (principal); Z90.49 Acquired absence of other specified parts of digestive tract
CPT/HCPCS: 74018

== ENCOUNTER → 2019-01-27 | Outpatient (CLI) | payer BC ==
--- NOTE | 2019-01-28 10:18 | Diagnostic Imaging Report ---
PROCEDURE: CT right lower extremity without contrast. TECHNIQUE: Axially acquired CT was obtained through the right lower extremity without intravenous contrast. Coronal and sagittal reformations were also performed. Auto Exposure Controls were utilized during the CT exam to meet ALARA standards for radiation dose reduction. INDICATION: Right knee pain. COMPARISON: None available. FINDINGS: Status post ACL reconstruction with fixation along the lateral femur. Both the femoral and tibial tunnels are markedly expanded with mixed low and intermediate attenuation present within the tunnels. The margins of the tunnels remain well-circumscribed without aggressive destruction. At the distal most aspect of the tibial tunnel, there is mixed soft tissue and mineralized debris that may represent bone graft material that has extruded anteriorly into the soft tissues. This component of mineralized extrusion measures 1.7 x 1.6 cm and does cause a convex anterior abnormality of the soft tissues at this level and accounts for the area of palpable concern as demarcated by a BB placed on the skin. The ACL graft itself cannot be appreciated on this examination, but CT lacks the soft tissue differentiation of MRI which could better evaluate for graft integrity. The remainder of the distal femur and proximal tibia shows no abnormality. The patella is normal in alignment. Fibular head is intact. No significant knee joint effusion. No Gan's cyst is appreciated. IMPRESSION: 1. Prior ACL reconstruction, with extensive expansion of both the tibial and femoral tunnels, that is likely due to joint fluid and/or ganglia developing within the tunnels and causing expansion. 2. The bone graft/plug in the tibial tunnel is partially extruded into soft tissues at its distal margin and accounts for the nodule in the anterior aspect of the lower leg. 3. While the ACL graft is not directly visualized on this examination, it is likely torn given the associated above findings. MRI of the knee without contrast could be performed for further characterization if it will alter patient management. Dictated by: Dictated on workstation # [id number]
== END ==
LOC: RAD 16:48
PROVIDERS: ATTEND Orthopaedic Surgery
DX: M85.661 Other cyst of bone, right lower leg (principal); Z98.890 Other specified postprocedural states
CPT/HCPCS: 73700

== ENCOUNTER → 2019-03-10 | Outpatient (CLI) | payer BC ==
[~2019-03-10] MED LIST changes: +BARIUM SUSPENSION 105% (LIQUID POLIBAR PLUS) 240 ML/DOSE PO ONE; +BARIUM SUSPENSION 60% (LIQUID EZ PAQUE) 240 ML DOSE PO ONE
--- NOTE | 2019-03-10 10:57 | Diagnostic Imaging Report ---
Upper GI exam and small bowel follow-through. Indication: Abdominal pain. There are no prior upper GI examinations available for comparison. The CT abdomen/pelvis exam of 01/07/2018 did note postsurgical changes consistent with a partial right colectomy. The patient swallowed the contrast material without difficulty. There was no delay or obstruction in passing the barium through the esophagus. There is no sign of hiatal hernia, nor is any evidence for reflux. The stomach shows good distensibility and motility. There is no mass or ulceration evident. The duodenal bulb and proximal small bowel were generally unremarkable The transit time through the small bowel was approximately 15 minutes (normal transit time 30 minutes to 3 hours). The reason for the rapid transit time is not certain. There is no abnormal narrowing, dilatation or mass effect of the small bowel. The anastomosis with the colon is not particularly well visualized but shows no definite abnormality. Impression: 1. There is no evidence for a hiatal hernia or for gastroesophageal reflux. 2. There is no gastric mass or ulceration identified. 3. The transit time through the small bowel was rapid. The reason for this is not certain. There is no other abnormality of the small bowel identified. 4. The anastomosis of the small bowel and right colon is patent. 5. These results were discussed with Dr. Santa. Dictated by: Dictated on workstation # [id number]
== END ==
LOC: RAD 08:36
PROVIDERS: ATTEND Internal Medicine Gastroenterology
DX: R10.9 Unspecified abdominal pain (principal); Z90.49 Acquired absence of other specified parts of digestive tract
CPT/HCPCS: 74249

== ENCOUNTER 2019-03-12 10:34 | Emergency (ER) | payer BC ==
[~2019-03-12] VITALS: Ht 160 cm; Wt 59.0 kg
[~2019-03-12 10:34] MED LIST changes: -BARIUM SUSPENSION 105% (LIQUID POLIBAR PLUS) 240 ML/DOSE PO ONE; -BARIUM SUSPENSION 60% (LIQUID EZ PAQUE) 240 ML DOSE PO ONE
--- NOTE | 2019-03-12 10:58 | ED Neurological Problem ---
General Chief Complaint: Neurological Problems Stated Complaint: SEIZURE Nursing Triage Note: ARRIVED VIA EMS FROM DR MEI'S OFFICE AFTER HAVING SEIZURE LIKE ACTIVITY AFTER HAVING A KNEE BONE GRAFT AND CYST REMOVAL OF RIGHT KNEE. EMS REPORTS A TOTAL OF 8 VERSED AND 1CC OF PROPOFOL GIVEN AT THE DR'S OFFICE AND NO MEDS GIVEN BY EMS. PT ALERT ET ORIENTED X3 BUT ALSO HAVING PSEUDO SEIZURE LIKE ACTIVITY WHILE SHE IS TALKING. Nursing Sepsis Screen: No Definite Risk Source: patient Exam Limitations: no limitations History of Present Illness Date Seen by Provider: Mar 12, 2019 Time Seen by Provider: 10:35 Initial Comments Patient presents to ER by EMS with chief complaint that she is having some seizure-like activity. She had a bone cyst in her right tibia removed and some bone grafting done by Dr. Mei and about 3 minutes out of the surgery and recovery she started having some convulsions and movement. She does have a history of pseudoseizures. She is not on any antiepileptics nor does she have a history of epilepsy. She says she used to follow with a neurologist up to several years ago. In the past usually just rest, warmth and occasionally Ativan as helped. She received a total of 8 mg Versed in 2 mg increments by anesthesia. She is able to talk and is coherent throughout all of her convulsions, seizure- like activity. She gives her history and tells us that other than her right knee hurting she is not actually having any recent history of illness, cough, shortness of breath, nausea, dysuria, discharge, fevers, chills. She had a negative urine test at the clinic within the last 24 hours. She electively went off of her oral control about 6 months ago. Usually takes high doses of Effexor for her psychiatrist and that helps prevent pseudoseizures. She said she had one last week. She has not taken her Effexor today but has not missed any doses. She had a colonoscopy earlier in the week. She was also given some propofol IV 1 cc of an unknown concentration in an attempt to stop the seizure-like activity. She is accompanied by her mother reports that she's been in good health and in the past she has used Ativan to help break the seizure. She does have a history of irritable bowel syndrome on dicyclomine and linzess and says she's been more constipated than anything recently. She did have a bowel obstruction and had to have partial resection years ago. Allergies and Home Medications Allergies Coded Allergies: Sulfa (Sulfonamide Antibiotics) (Verified Allergy, Unknown, 01/02/18) clindamycin (Verified Allergy, Unknown, 12/31/17) meperidine (Verified Allergy, Unknown, 12/31/17) metoclopramide (Verified Allergy, Unknown, 12/31/17) Home Medications Amoxicillin 500 Mg Capsule, 500 MG PO TID Prescribed by: MONTSERRAT CHENEY on 01/09/18 1340 Dicyclomine HCl 20 Mg Tablet, 20 MG PO TIDAC, (Reported) Fluconazole 100 Mg Tablet, 100 MG PO DAILY Prescribed by: MONTSERRAT CHENEY on 01/09/18 1340 Hydrocodone Bit/Acetaminophen 1 Tab Tab, 1 TAB PO Q4H PRN Prescribed by: MONTSERRAT CHENEY on 01/09/18 1340 Linaclotide 145 Mcg Capsule, 145 MCG PO DAILY, (Reported) Norethindrone-Ethinyl Estrad 1 Each Tablet, 1 TAB PO DAILY, (Reported) Pedi Mv No.79/Ferrous Fumarate 18 Mg Tab.chew, 18 MG PO DAILY, (Reported) Tramadol HCl 50 Mg Tablet, 50 MG PO Q6H PRN for PAIN-MODERATE, (Reported) Venlafaxine HCl 225 Mg Tab.er.24, 225 MG PO DAILY, (Reported) [Domperidone 10MG] , 10 MG PO TIDAC, (Reported) Patient Home Medication List Home Medication List Reviewed: Yes Review of Systems Review of Systems Constitutional: No chills, No fever, No malaise Eyes: Denies Blindness, Denies Blurred Vision, Denies Drainage Ears, Nose, Mouth, Throat: denies ear pain, denies ear discharge Respiratory: No cough, No short of breath Cardiovascular: No chest pain, No edema Gastrointestinal: No abdominal pain; constipation; No diarrhea; nausea; No vomiting Genitourinary: No discharge, No dysuria Past Wkbwrny-Lopnnw-Fokpvi Hx Patient Social History Alcohol Use: Denies Use Recreational Drug Use: No 2nd Hand Smoke Exposure: No Recent Foreign Travel: No Contact w/Someone Who Travel: No Recent Infectious Disease Expo: No Recent Hopitalizations: No Immunizations Up To Date Tetanus Booster (TDap): Unknown Seasonal Allergies Seasonal Allergies: No Past Medical History Surgeries: Yes (right ACl-2006,2007,left knee meniscectomy, ERCP, Right colon resection) Gallbladder, Orthopedic, Tonsillectomy Respiratory: No Asthma Currently Using CPAP: No Currently Using BIPAP: No Cardiac: No Neurological: Yes (SINCE 2 MONTS OLD. LAST SEIZURE JANUARY 2016) Seizure Disorder Sexually Transmitted Disease: No HIV/AIDS: No Genitourinary: Yes Kidney Stones Gastrointestinal: Yes (gastroparesis) Gastroesophageal Reflux, Irritable Bowel Musculoskeletal: Yes Endocrine: No HEENT: Yes Cataract Cancer: No Psychosocial: Yes Anxiety Integumentary: No Blood Disorders: No Adverse Reaction/Blood Tranf: No Family Medical History Autoimmune disorder 19 MOTHER, Onset:30's - 40 Dementia maternal grandmother, Onset:60 years & older Diabetes mellitus maternal grandmother, Onset:Unknown Drug abuse FH: hypothyroidism 19 MOTHER, Onset:Unknown Hypertension maternal grandmother, Onset:Unknown maternal grandfather, Onset:Unknown Kidney stone 19 FATHER, Onset:Unknown Heart Disease, Other Conditions/Hx Physical Exam Vital Signs Vital Signs - First Documented 03/12/19 10:34 Temp 98.0 Pulse 95 Resp 16 B/P (MAP) 114/76 (89) Pulse Ox 100 O2 Delivery Nasal Cannula O2 Flow Rate 3.00 Capillary Refill : Less Than 3 Seconds Height, Weight, BMI Height: 5'3.00" Weight: 130lbs. 0.0oz. 58.934529lc; 26.0 BMI Method:Estimated General Appearance: WD/WN, mild distress HEENT: PERRL/EOMI, normal ENT inspection, TMs normal, pharynx normal Neck: non-tender, full range of motion, supple, normal inspection Respiratory: lungs clear, normal breath sounds, no respiratory distress, no accessory muscle use Cardiovascular: normal peripheral pulses, regular rate, rhythm, no edema Peripheral Pulses: 2+ Radial Pulses (R), 2+ Radial Pulses (L) Gastrointestinal: normal bowel sounds, non tender, soft, no organomegaly Extremities: normal range of motion, non-tender, normal capillary refill Neurologic/Psychiatric: alert, normal mood/affect, oriented x 3, other (intermittent, full body spasms and slow, rhythmic convulsions. Able to talk coherently route them.) Crainal Nerves: normal hearing, normal speech, PERRL Motor/Sensory: no motor deficit, no sensory deficit Skin: normal color, warm/dry Progress/Results/Core Measures Results/Orders Lab Results Laboratory Tests Test 03/12/19 11:00 03/12/19 12:17 Range/Units White Blood Count 5.6 4.3-11.0 10^3/uL Red Blood Count 3.70 L 4.35-5.85 10^6/uL Hemoglobin 10.7 L 11.5-16.0 G/DL Hematocrit 32 L 35-52 % Mean Corpuscular Volume 86 80-99 FL Mean Corpuscular Hemoglobin 29 25-34 PG Mean Corpuscular Hemoglobin Concent 34 32-36 G/DL Red Cell Distribution Width 13.0 10.0-14.5 % Platelet Count 207 130-400 10^3/uL Mean Platelet Volume 8.9 7.4-10.4 FL Neutrophils (%) (Auto) 87 H 42-75 % Lymphocytes (%) (Auto) 10 L 12-44 % Monocytes (%) (Auto) 3 0-12 % Eosinophils (%) (Auto) 0 0-10 % Basophils (%) (Auto) 0 0-10 % Neutrophils # (Auto) 4.9 1.8-7.8 X 10^3 Lymphocytes # (Auto) 0.6 L 1.0-4.0 X 10^3 Monocytes # (Auto) 0.1 0.0-1.0 X 10^3 Eosinophils # (Auto) 0.0 0.0-0.3 10^3/uL Basophils # (Auto) 0.0 0.0-0.1 10^3/uL Neutrophils % (Manual) 81 % Lymphocytes % (Manual) 14 % Monocytes % (Manual) 3 % Eosinophils % (Manual) 0 % Basophils % (Manual) 0 % Band Neutrophils 2 % Elliptocytes SLIGHT Sodium Level 137 135-145 MMOL/L Potassium Level 4.4 3.6-5.0 MMOL/L Chloride Level 112 H 98-107 MMOL/L Carbon Dioxide Level 21 21-32 MMOL/L Anion Gap 4 L 5-14 MMOL/L Blood Urea Nitrogen 9 7-18 MG/DL Creatinine 0.71 0.60-1.30 MG/DL Estimat Glomerular Filtration Rate > 60 BUN/Creatinine Ratio 13 Glucose Level 86 70-105 MG/DL Calcium Level 7.8 L 8.5-10.1 MG/DL Corrected Calcium 7.9 L 8.5-10.1 MG/DL Total Bilirubin 0.2 0.1-1.0 MG/DL Aspartate Amino Transf (AST/SGOT) 16 5-34 U/L Alanine Aminotransferase (ALT/SGPT) 15 0-55 U/L Alkaline Phosphatase 61 40-136 U/L C-Reactive Protein High Sensitivity 0.03 0.00-0.50 MG/DL Total Protein 6.6 6.4-8.2 GM/DL Albumin 3.9 3.2-4.5 GM/DL Urine Color YELLOW Urine Clarity CLEAR Urine pH 7 5-9 Urine Specific [place] 1.005 L 1.016-1.022 Urine Protein NEGATIVE NEGATIVE Urine Glucose (UA) NEGATIVE NEGATIVE Urine Ketones NEGATIVE NEGATIVE Urine Nitrite NEGATIVE NEGATIVE Urine Bilirubin NEGATIVE NEGATIVE Urine Urobilinogen NORMAL NORMAL MG/DL Urine Leukocyte Esterase 2+ H NEGATIVE Urine RBC (Auto) NEGATIVE NEGATIVE Urine RBC NONE /HPF Urine WBC 5-10 H /HPF Urine Squamous Epithelial Cells 10-25 H /HPF Urine Crystals NONE /LPF Urine Bacteria FEW H /HPF Urine Casts NONE /LPF Urine Mucus NEGATIVE /LPF Urine Culture Indicated YES Urine Opiates Screen NEGATIVE NEGATIVE Urine Oxycodone Screen NEGATIVE NEGATIVE Urine Methadone Screen NEGATIVE NEGATIVE Urine Propoxyphene Screen NEGATIVE NEGATIVE Urine Barbiturates Screen NEGATIVE NEGATIVE Ur Tricyclic Antidepressants Screen NEGATIVE NEGATIVE Urine Phencyclidine Screen NEGATIVE NEGATIVE Urine Amphetamines Screen NEGATIVE NEGATIVE Urine Methamphetamines Screen NEGATIVE NEGATIVE Urine Benzodiazepines Screen NEGATIVE NEGATIVE Urine Cocaine Screen NEGATIVE NEGATIVE Urine Cannabinoids Screen NEGATIVE NEGATIVE My Orders Orders - KAYLEE BHATT Cbc With Automated Diff (03/12/19 10:48) Comprehensive Metabolic Panel (03/12/19 10:48) Hs C Reactive Protein (03/12/19 10:48) Ua Culture If Indicated (03/12/19 10:48) Urine Bedside (03/12/19 10:48) Ondansetron Injection (Zofran Injectio (03/12/19 11:00) End Tidal Co2 (03/12/19 11:03) Manual Differential (03/12/19 11:00) Drug Screen Stat (Urine) (03/12/19 12:08) Hcg,Qualitative Urine (03/12/19 12:19) Urine Culture (03/12/19 12:17) Medications Given in ED Current Medications Medications Dose Ordered Sig/Warren Route Start Time Stop Time Status Last Admin Dose Admin Ondansetron HCl 4 mg ONCE ONCE IVP 6/14/19 11:00 03/12/19 11:01 DC 03/12/19 11:09 4 MG Vital Signs/I&O 03/12/19 10:34 Temp 98.0 Pulse 95 Resp 16 B/P (MAP) 114/76 (89) Pulse Ox 100 O2 Delivery Nasal Cannula O2 Flow Rate 3.00 Blood Pressure Mean: 89 Progress Progress Note #1: Time: 11:01 Progress Note Patient with a history of pseudoseizures experiencing an episode after recovering from anesthesia for her surgery. She doesn't want anything for the pain in her knee and has no other systemic symptoms. No constitutional symptoms. Plan to check some basic blood and lab to make sure that there is no evidence of infection or other concerns. Because she received propofol as well as Versed we would also like to observe her to make sure her airway will be safe to go back home. We have provided her with some warm blankets. EMS or anesthesia has initiated a liter of fluids and we'll let her have the rest of those. 4 mg Zofran for nausea. End-tidal CO2 monitoring. Progress Note #2: Time: 12:44 Progress Note Patient is alert, bright, bradycardia go home. Urine specimen is most likely represents contamination so we'll just do a culture. We've explained her labs to her and she says she does not have a history of hypocalcemia we'll suggest that she follow up with her primary provider at [place], [place]. Departure Communication (PCP) Updated Dr. Mei of the outcome and that we are sending the patient home. Impression Primary Impression: Psychogenic nonepileptic seizure Additional Impressions: Bone cyst of tibia Hypocalcemia Disposition: 01 HOME, SELF-CARE Condition: Improved Departure-Patient Inst. Decision time for Depature: 12:46 Referrals: ERMA CAUSEY (PCP/Family) Primary Care Physician Patient Instructions: Hypocalcemia Add. Discharge Instructions: Please follow-up with your primary care provider and discuss your low calcium. All discharge instructions reviewed with patient and/or family. Voiced understanding. KAYLEE BHATT Mar 12, 2019 10:58
[2019-03-12] MEDS ORDERED: ONDANSETRON 4 MG/2 ML (SDV) Z0FRAN IVP ONE (11:00)
[2019-03-12 11:07] LABS: BASOPHILS % (AUTO) 0 % (0-10); EOSINOPHILS % (AUTO) 0 % (0-10); HEMATOCRIT 32 % (35-52); HEMOGLOBIN 10.7 G/DL (11.5-16.0); LYMPHOCYTES # (AUTO) 0.6 X 10^3 (1.0-4.0); LYMPHOCYTES % (AUTO) 10 % (12-44); MEAN CORPUSCULAR HEMOGLOBIN 29 PG (25-34); MEAN CORPUSCULAR HGB CONC 34 G/DL (32-36); MEAN CORPUSCULAR VOLUME 86 FL (80-99); MEAN PLATELET VOLUME 8.9 FL (7.4-10.4); MONOCYTES # (AUTO) 0.1 X 10^3 (0.0-1.0); MONOCYTES % (AUTO) 3 % (0-12); NEUTROPHILS # (AUTO) 4.9 X 10^3 (1.8-7.8); NEUTROPHILS % (AUTO) 87 % (42-75); PLATELET COUNT 207 10^3/uL (130-400); WHITE BLOOD COUNT 5.6 10^3/uL (4.3-11.0)
[2019-03-12 11:29] LABS: ALANINE AMINOTRANSFERASE 15 U/L (0-55); ALBUMIN 3.9 GM/DL (3.2-4.5); ALKALINE PHOSPHATASE 61 U/L (40-136); BILIRUBIN,TOTAL 0.2 MG/DL (0.1-1.0); BUN/CREATININE RATIO 13; CALCIUM 7.8 MG/DL (8.5-10.1); CARBON DIOXIDE 21 MMOL/L (21-32); CHLORIDE 112 MMOL/L (98-107); CREATININE SERUM 0.71 MG/DL (0.60-1.30); GFR ESTIMATED > 60; GLUCOSE 86 MG/DL (70-105); POTASSIUM 4.4 MMOL/L (3.6-5.0); SODIUM 137 MMOL/L (135-145); TOTAL PROTEIN 6.6 GM/DL (6.4-8.2)
[2019-03-12 11:43] LABS: BAND NEUTROPHILS 2 %; BASOPHILS % (MANUAL) 0 %; ELLIPT/OVALOCYTES SLIGHT; EOSINOPHILS % (MANUAL) 0 %; LYMPHOCYTES % (MANUAL) 14 %; MONOCYTES % (MANUAL) 3 %; NEUTROPHILS % (MANUAL) 81 %
[2019-03-12 12:23] LABS: BILIRUBIN,URINE NEGATIVE (NEGATIVE); CLARITY,URINE CLEAR; COLOR,URINE YELLOW; GLUCOSE, URINE (UA) NEGATIVE (NEGATIVE); KETONES,URINE NEGATIVE (NEGATIVE); LEUKOCYTE ESTERASE ,URINE 2+ (NEGATIVE); NITRITE,URINE NEGATIVE (NEGATIVE); PH,URINE 7 (5-9); PROTEIN,URINE NEGATIVE (NEGATIVE); UROBILINOGEN,URINE NORMAL (NORMAL)
[2019-03-12 12:30] LABS: BACTERIA,URINE FEW /HPF
[2019-03-12 12:37] LABS: AMPHETAMINE SCREEN, URINE NEGATIVE (NEGATIVE); BARBITURATE SCREEN URINE NEGATIVE (NEGATIVE); BENZODIAZEPINES SCREEN URINE NEGATIVE (NEGATIVE); CANNABINOID SCREEN, URINE NEGATIVE (NEGATIVE); COCAINE SCREEN URINE NEGATIVE (NEGATIVE); METHADONE STAT NEGATIVE (NEGATIVE); METHAMPHETAMINE SCREEN URINE S NEGATIVE (NEGATIVE); OPIATE SCREEN URINE NEGATIVE (NEGATIVE); OXYCODONE STAT NEGATIVE (NEGATIVE); PROPOXYPHENE STAT NEGATIVE (NEGATIVE); TRICYCLIC ANTIDEPRESSANTS SCRE NEGATIVE (NEGATIVE)
[2019-03-12 13:10] VITALS: BP 114/76
== END 2019-03-12 13:11 | disposition home or self-care (01) ==
LOC: EDUNIT# 10:34 → ER 10:35
DX: G40.909 Epilepsy, unspecified, not intractable, without status epilepticus (principal); M85.461 Solitary bone cyst, right tibia and fibula; E83.51 Hypocalcemia; J45.909 Unspecified asthma, uncomplicated; K58.9 Irritable bowel syndrome, unspecified; F41.9 Anxiety disorder, unspecified; Z87.19 Personal history of other diseases of the digestive system; Z87.442 Personal history of urinary calculi; Z88.2 Allergy status to sulfonamides; Z82.49 Family history of ischemic heart disease and other diseases of the circulatory system; Z88.1 Allergy status to other antibiotic agents; Z88.8 Allergy status to other drugs, medicaments and biological substances; Z90.89 Acquired absence of other organs; Z98.890 Other specified postprocedural states; Z96.652 Presence of left artificial knee joint; Z90.49 Acquired absence of other specified parts of digestive tract
CPT/HCPCS: 36415; 80053; 80306; 81000; 84703; 85007; 85027; 86141; 87088

== ENCOUNTER → 2019-03-29 | Outpatient (CLI) | payer BC | LOC: LAB 08:36 | PROVIDERS: ATTEND Physician Assistant Medical | DX: E83.51 Hypocalcemia (principal) | CPT/HCPCS: 36415; 82310 ==

== ENCOUNTER → 2020-01-28 | Outpatient (CLI) | payer BC ==
[~2020-01-28] MED LIST changes: -TAMS0.4C98 PO; +TMSL.4C PO; -TRAM50TA2 PO; +TRM50T PO
== END ==
LOC: LAB 12:45
PROVIDERS: ATTEND Obstetrics & Gynecology Reproductive Endocrinology
DX: Z01.83 Encounter for blood typing (principal)
CPT/HCPCS: 86850; 86900; 86901

== ENCOUNTER → 2020-03-01 | Outpatient (CLI) | payer BC ==
[2020-03-01 16:15] LABS: BASOPHILS % (AUTO) 0 % (0-10); EOSINOPHILS % (AUTO) 1 % (0-10); HEMATOCRIT 36 % (35-52); HEMOGLOBIN 12.2 G/DL (11.5-16.0); LYMPHOCYTES # (AUTO) 1.6 X 10^3 (1.0-4.0); LYMPHOCYTES % (AUTO) 30 % (12-44); MEAN CORPUSCULAR HEMOGLOBIN 30 PG (25-34); MEAN CORPUSCULAR HGB CONC 34 G/DL (32-36); MEAN CORPUSCULAR VOLUME 88 FL (80-99); MONOCYTES # (AUTO) 0.5 X 10^3 (0.0-1.0); MONOCYTES % (AUTO) 10 % (0-12); NEUTROPHILS # (AUTO) 3.1 X 10^3 (1.8-7.8); NEUTROPHILS % (AUTO) 59 % (42-75); PLATELET COUNT 335 10^3/uL (130-400); RED CELL DISTRIBUTION WIDTH 14.3 % (10.0-14.5); WHITE BLOOD COUNT 5.2 10^3/uL (4.3-11.0)
== END ==
LOC: LAB 15:37
PROVIDERS: ATTEND Obstetrics & Gynecology Reproductive Endocrinology
DX: D50.9 Iron deficiency anemia, unspecified (principal)
CPT/HCPCS: 36415; 82607; 85025

== ENCOUNTER → 2022-08-30 | Outpatient (CLI) | payer BC ==
[~2022-08-30] MED LIST changes: +DICY20TA; +DICY20TA PO; -DICY20TA10; -DICY20TA10 PO; +FLUC100T10 PO; -FLUC100T6 PO; -NORE1TAB55; -NORE1TAB55 PO; +[UNRECOGNIZED DRUG - CODE]; +[UNRECOGNIZED DRUG - CODE] PO
--- NOTE | 2022-08-30 20:53 | Diagnostic Imaging Report ---
Examination: Ultrasound pelvis . Date: August 30, 2022. Indication: 42-year-old female, vaginal bleeding. Comparison: CT abdomen and pelvis January 07, 2018. Technique: A sonogram of the pelvis was performed utilizing transabdominal and endovaginal approaches assessing grayscale appearance and color Doppler flow. Findings: The uterus measures 7.5 x 3.3 x 4.4 there is a questionable intrauterine lesion measuring 1.4 x 0.8 x 1.1 cm in size which may relate to a uterine leiomyoma. The endometrium measures 0.3 cm in diameter. The right ovary measures 2.2 cm x 1.5 cm x 1.9 cm. The left ovary measures 2.1 cm x 1.8 cm x 2.5 cm. There is no concerning adnexal mass. There is blood flow to both ovaries. No free pelvic fluid is demonstrated. Impression: 1. Questionable intrauterine lesion measuring up to 1.4 cm in size which may reflect an intrauterine leiomyoma. 2. Normal endometrial thickness. 3. Grossly unremarkable appearance of the ovaries. 4. No free pelvic fluid. Dictated by: Dictated on workstation # [id number]
== END ==
LOC: RAD 15:00
PROVIDERS: ATTEND Nurse Practitioner Family
DX: N93.9 Abnormal uterine and vaginal bleeding, unspecified (principal)
CPT/HCPCS: 76830; 76856

== ENCOUNTER 2023-01-14 05:40 | Outpatient (CLI) | payer BC ==
[~2023-01-14] VITALS: Ht 157.5 cm; Wt 78.8 kg
[2023-01-15] MEDS ORDERED: BUPR-168 PO (13:54)
[2023-01-15] MEDS ORDERED: ARIP10TA55 PO (13:54)
== END 2023-01-15 14:21 | disposition home or self-care (01) ==
LOC: PREOP 05:40
PROVIDERS: ATTEND Obstetrics & Gynecology
DX: Z01.818 Encounter for other preprocedural examination (principal)

== ENCOUNTER 2023-01-21 05:57 | Day surgery (SDC) | payer BC ==
[2023-01-21] VITALS (10 sets, daily range): BP systolic 110–125; BP diastolic 73–95
[~2023-01-21] VITALS: Ht 157 cm; Wt 78.8 kg
[~2023-01-21 05:57] MED LIST changes: +ARIP10TA55 PO; +BUPR-168 PO
[2023-01-21] MEDS ORDERED: ceFAZolin INJECTION 2,000 MG in NS (IVPB) 50 ML IV ONE (06:30)
[2023-01-21] MEDS ORDERED: metroNIDAZOLE 500MG/100ML IVPB 100 ML IV ONE (06:30)
[2023-01-21] MEDS ORDERED: BUPIVACAINE 0.25% 30 ML (SENSORCAINE) VIAL ONE (06:45)
[2023-01-21 06:55] LABS: BASOPHILS % (AUTO) 0 % (0-10); EOSINOPHILS # (AUTO) 0.1 10^3/uL (0.0-0.3); EOSINOPHILS % (AUTO) 2 % (0-10); HEMATOCRIT 40 % (35-52); HEMOGLOBIN 13.3 g/dL (11.5-16.0); LYMPHOCYTES # (AUTO) 1.2 10^3/uL (1.0-4.0); LYMPHOCYTES % (AUTO) 25 % (12-44); MEAN CORPUSCULAR HEMOGLOBIN 30 pg (25-34); MEAN CORPUSCULAR HGB CONC 34 g/dL (32-36); MEAN CORPUSCULAR VOLUME 89 fL (80-99); MONOCYTES # (AUTO) 0.4 10^3/uL (0.0-1.0); MONOCYTES % (AUTO) 7 % (0-12); NEUTROPHILS # (AUTO) 3.2 10^3/uL (1.8-7.8); NEUTROPHILS % (AUTO) 65 % (42-75); PLATELET COUNT 274 10^3/uL (130-400); WHITE BLOOD COUNT 4.9 10^3/uL (4.3-11.0)
[2023-01-21] MEDS ORDERED: fentaNYL INJ 100 MCG/2 ML AMP ONE (07:22)
[2023-01-21] MEDS ORDERED: MIDAZOLAM 2 MG/2 ML (VERSED) VIAL ONE (07:22)
--- NOTE | 2023-01-21 07:52 | Progress Note-Pre Operative ---
Pre-Operative Progress Note Date of Available H&P: Jan 21, 2023 Date H&P Reviewed: Jan 21, 2023 Time H&P Reviewed: 07:05 History & Physical: H&P Reviewed, Patient Examed, No changes noted Pre-Operative Diagnosis: AUB, Fibroid uterus, CPP ALPESH OSMAN DO Jan 21, 2023 07:52
--- NOTE | 2023-01-21 07:55 | Discharge Inst-Women's Service ---
Discharge Inst-Women's Serv Depart Medication/Instructions New, Converted or Re-Newed RX: Transmitted to Pharmacy Problems Reviewed?: Yes Consults/Follow Up Additional Follow Up: Yes Orders/Referrals Dr. Valdez in 7-10 days and in 8 weeks Activity Activity: Activity as Tolerated Driving Instructions: No Driving for 1 Week NO SMOKING: NO SMOKING Nothing Inside Vagina: No Douching, No Baring, No Tampons Diet Discharge Diet: No Restrictions Symptoms to Report to : Bleeding Excessive, Pain Increased, Fever Over 101 Degrees F, Vaginal Bleeding Increase, Questions/Concerns For Any Problems or Questions: Contact Your Physician Skin/Wound Care Infection Signs and Symptoms: Increased Redness, Foul Odor of Wound, Increased Drainage, Skin Itchy or Has a Rash, Increased Swelling, Temperature Above 101 F Operative Area Clean and Dry: Keep Incision Clean/Dry Stitches/Jesus/Dermabond: Dermabond, Care of Stitches Bathing Instructions: ALPESH Fonseca DO Jan 21, 2023 07:55
[2023-01-21] MEDS ORDERED: SIME80TA16 PO (07:57)
[2023-01-21] MEDS ORDERED: IBUP-844 PO (07:57)
[2023-01-21] MEDS ORDERED: DOCU100C37 PO (07:57)
[2023-01-21] MEDS ORDERED: HYDR-34 PO (07:57)
[2023-01-21] MEDS ORDERED: ANTACID SUSP 30 ML UDC (MYLANTA) PO PRN (08:00)
[2023-01-21] MEDS ORDERED: KETOROLAC 30 MG/ML VIAL IVP PRN (08:00)
[2023-01-21] MEDS ORDERED: SIMETHICONE 80 MG (MYLICON) CHEW PO PRN (08:00)
[2023-01-21] MEDS ORDERED: HYDROmorphone 2 MG/ML VIAL (DILAUDID) IV PRN (08:00)
[2023-01-21] MEDS ORDERED: HYDROcodone/APAP 7.5 MG/325 MG (LORTAB, LORCET PLUS) TABLET PO PRN (08:00)
[2023-01-21] MEDS ORDERED: BENZOCAINE LOZENGES 1 EACH LOZENGE MM PRN (08:00)
[2023-01-21] MEDS ORDERED: ZOLPIDEM 5 MG (AMBIEN) TAB PO PRN (08:00)
[2023-01-21] MEDS ORDERED: DOCUSATE SODIUM 100 MG (COLACE) CAP PO PRN (08:00)
[2023-01-21] MEDS ORDERED: ONDANSETRON 4 MG/2 ML (SDV) Z0FRAN IV PRN (08:00)
[2023-01-21] MEDS: LACTATED RINGERS 1,000 ML IV PRN ×2 (08:18→08:28)
[2023-01-21] MEDS ORDERED: BUPIVACAINE 0.25% 30 ML (SENSORCAINE) VIAL INJ ONE (08:23)
[2023-01-21] MEDS ORDERED: GLYCOPYRROLATE 0.2 MG/ML (ROBINUL) 2 ML VIAL ONE (09:01)
[2023-01-21] MEDS ORDERED: proPOfol 200 MG/20 ML (DIPRIVAN) VIAL IV ONE (09:01)
[2023-01-21] MEDS ORDERED: KETOROLAC 30 MG/ML VIAL ONE (09:01)
[2023-01-21] MEDS ORDERED: LIDOCAINE PF 2% 5 ML (XYLOCAINE) VIAL ONE (09:01)
[2023-01-21] MEDS ORDERED: NEOSTIGMINE (BLOXIVERZ ) 1 MG/1ML 10 ML VIAL ONE (09:01)
[2023-01-21] MEDS ORDERED: ROCURONIUM 50 MG/5 ML (ZEMURON) VIAL IV ONE (09:01)
[2023-01-21] MEDS ORDERED: ONDANSETRON 4 MG/2 ML (SDV) Z0FRAN ONE (09:01)
[2023-01-21] MEDS ORDERED: SEVOFLURANE (ULTANE) 15 ML INHAL SOLN ONE (09:05)
[2023-01-21] MEDS ORDERED: HYDROmorphone 2 MG/ML VIAL (DILAUDID) ONE (09:26)
[2023-01-21] MEDS ORDERED: ONDANSETRON 4 MG/2 ML (SDV) Z0FRAN IVP PRN (09:30)
[2023-01-21] MEDS ORDERED: PROMETHAZINE INJ 25 MG/ML (PHENERGAN) AMP IVP ONE (09:30)
[2023-01-21] MEDS ORDERED: HYDROmorphone 2 MG/ML VIAL (DILAUDID) IV ONE (09:30)
[2023-01-21] MEDS ORDERED: IBUPROFEN 600 MG (MOTRIN) TAB PO SCH (12:00)
[2023-01-21] MEDS: LACTATED RINGERS 1,000 ML IV SCH ×2 (12:05→15:12)
--- NOTE | 2023-01-21 21:30 | OPERATIVE REPORT ---
DATE OF SERVICE: 01/21/2023 PREOPERATIVE DIAGNOSES: 1. A 42-year-old female with abnormal uterine bleeding. 2. Fibroid uterus. POSTOPERATIVE DIAGNOSES: 1. A 42-year-old female with abnormal uterine bleeding. 2. Fibroid uterus. PROCEDURE: Robotic-assisted total laparoscopic hysterectomy, bilateral salpingectomy. SURGEON: Edmond Valdez DO INSPECTOR TOYS: Lizeth Johnston DNP was necessary for manipulation and retraction throughout the procedure. ANESTHESIA: General endotracheal. ESTIMATED BLOOD LOSS: Minimal. URINE OUTPUT: 100 mL clear at the end of the procedure FLUIDS: 1100 mL lactated Ringer's solution. FINDINGS: Grossly normal-appearing uterus with multiple subserosal fibroids. Grossly normal appearing bilateral fallopian tubes and ovaries. SPECIMEN SENT: Uterus, bilateral fallopian tubes. INDICATIONS FOR PROCEDURE: This 42-year-old female is the who has consulted to our office for ongoing issues with heavy periods that were secondary to fibroids. She had explored alternative and conservative measures in the past and wished to proceed with more definitive measures, which is why she was consulted to my office. 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 We decided to leave her ovaries due to her age and hormonal status. Risks of the procedure were discussed with the patient in detail including risk of bleeding, infection, damage to surrounding structures including but not limited to bowel, bladder, ureter or kidney, possible need for operation, postoperative complications that may occur, recovery timeframe, risk from anesthesia and even . After everything was discussed with the patient in detail, consent was obtained, the patient was taken to the operating room. OPERATIVE REPORT IN DETAIL: Once in the operating room, general anesthesia was administered and found to be adequate. She was placed in the dorsal lithotomy position, prepped and draped in normal sterile fashion. A timeout was performed. A Dixon catheter was placed using sterile technique. A weighted speculum inserted to the patient's vagina. Right angle retractor was used to visualize the cervix. An 0 Vicryl suture was then placed to anterior lip of the cervix and the Vicryl was used as my retraction point. I then gently sound the uterine cavity, depth was found to be 8 cm. I selected an 8 cm BLANCA uterine manipulator tip and a 3.5 cm colpotomy ring. The manipulator tip was advanced into the uterus where the balloon was deployed and the colpotomy ring was advanced around the vaginal fornix and then removed all the other instruments from the patient's vagina, performed change of gloves. I turned my attention to the abdomen where subcostally at the midclavicular line on the left side, I introduced the Veress needle through the skin until intraperitoneal placement was confirmed using a saline drop test. An opening pressure of 8 mmHg was noted. I proceeded with CO2 insufflation to maximum pressure of 15 mmHg, at which point I make an 8 mm infraumbilical trocar incision with a knife and direct an 8 mm blunt laparoscopic da Rob camera trocar through the incision until intraperitoneal placement was confirmed using da Rob laparoscope. There was no evidence of damage upon the entry site. A brief scan of the upper abdominal anatomy revealed multiple omental adhesions of the anterior abdominal wall to the omentum from prior abdominal surgery. Otherwise, no evidence of damage from my entry site. I then removed the Veress needle. I placed 2 lateral trocars using both 8 mm trocars, were placed under direct visualization of laparoscope. Once both of these trocars were in place, I bring in the da Rob robot and docked in appropriate fashion, placing the SynchroSeal device in left hand, monopolar jaden in the right hand, performed the following dissection bilaterally using the da Rob operative console. Starting at the uteroovarian ligament, I sealed and transected using the SynchroSeal device. I then created a window in the mesosalpinx, took this laterally down the mesosalpinx, amputating the fallopian tube from its surrounding blood supply. I then grasped the round ligament, which I sealed and transected using SynchroSeal device. I then grasped the entire broad ligament, which I sealed and transected using SynchroSeal device down to the level of the lower uterine segment, at which point I the anterior and posterior leaflets of the broad ligament. Anterior leaflet was taken around the anterior vaginal fornix. Posterior leaflet was taken around the posterior vaginal fornix. This allows me to skeletonize and transect the uterine vessels laterally, which I do so and then created a colpotomy at 12 o'clock position using monopolar jaden and take this circumferentially around the vaginal fornix amputating the vagina away from the cervix. The entire specimen was then removed through the vagina. I then closed the vaginal cuff using 2-0 V-Loc in a running fashion, after which there was no active bleeding noted from any of my dissection planes. I then undocked the da Rob robot and proceeded with remainder of the case laparoscopically. I copiously irrigated the pelvis using normal saline. Once again, there was no active bleeding noted from any of my dissection planes. I placed Surgiflo hemostatic agent over all my planes of dissection. I removed the lateral trocars under direct visualization of laparoscope. The infraumbilical trocars left in place for release of the remainder of insufflation and introduced 10 mL of 0.25% Marcaine in peritoneal cavity for postoperative pain management. I then removed this trocar as well. The skin was reapproximated using 4-0 Monocryl and interrupted subcuticular stitches. Dermabond was applied to incision. Bandage was placed over the incision as well. The patient tolerated the procedure well and sent to recovery area in stable condition with Dixon catheter still in place. Lap and sponge counts were correct at the end of the procedure. Instrument counts correct as well. Two grams of Ancef, 500 mg of Flagyl were given preoperatively for infection prophylaxis. Job ID: [id number] DocumentID: [id number] Dictated Date: 01/21/2023 12:05:27 Chief Engineer Date: 01/21/2023 21:29:00 Dictated By: DO ELISSA BELCHER
--- NOTE | 2023-01-22 08:27 | Anesthesia-General Post-Op ---
General Patient Condition Mental Status/LOC: Same as Preop Cardiovascular: Satisfactory Nausea/Vomiting: Absent Respiratory: Satisfactory Pain: Controlled Complications: Absent Post Op Complications Complications None Follow Up Care/Instructions Patient Instructions None needed. Anesthesia/Patient Condition Patient Condition Patient is doing well, no complaints, stable vital signs, no apparent adverse anesthesia problems. No complications reported per nursing. D/C home per [facility] Criteria: Yes JOSE BLANKENSHIP CRNA Jan 22, 2023 08:27
== END 2023-01-21 15:35 | disposition home or self-care (01) ==
LOC: SDC 05:57 → WS 11:20 → SDC 15:35
PROVIDERS: ATTEND Obstetrics & Gynecology
DX: D25.1 Intramural leiomyoma of uterus (principal); N93.9 Abnormal uterine and vaginal bleeding, unspecified; D25.2 Subserosal leiomyoma of uterus; N73.6 Female pelvic peritoneal adhesions (postinfective); N72 Inflammatory disease of cervix uteri; N94.6 Dysmenorrhea, unspecified; N80.03 Adenomyosis of the uterus; N83.8 Other noninflammatory disorders of ovary, fallopian tube and broad ligament; E66.9 Obesity, unspecified; Z68.31 Body mass index [BMI] 31.0-31.9, adult
CPT/HCPCS: 36415; 84703; 85025; 86850; 86900; 86901; 87081; 94664